=== PATIENT | female | born 1955 | race Caucasian/White ===

== ENCOUNTER 2023-07-31 13:12 | Outpatient (OUT) | payer MEDICARE, SELFPAY ==
--- NOTE | 2023-07-31 13:21 | MM_ITS ---
Patient: CARLOS BENNETT Exam Date: 07/31/2023 : 1955 Gender:F Ordering : Shaikh Andreas Kent . Admission #: [id number] Family : Order #: [id number] CLICK HERE TO VIEW EXAM RADIOLOGY REPORT PROCEDURE: MM TOMOSYNTHESIS SCREENING BI COMPARISON: MG MAMM SCREEN 3D YEE CAD, 06/26/2021. MG MAMM YEE SCRN W CAD DIG, 03/18/2017. MG MAMM YEE SCRN W CAD DIG, 08/22/2014. INDICATIONS: Screening Calculator Name NCI Breast Cancer Risk Assessment Tool 5 Year Breast Cancer Risk 2.80% Lifetime Breast Cancer Risk 10.00% Personal Breast Cancer No Personal Ovarian Cancer No Treatments None Family Cancers Mother with breast cancer at age 50; Father with lung cancer at age 87; Sister with lung cancer at age 72. LOCATION: [facility] BREAST COMPOSITION: Extremely dense, which lowers the sensitivity of mammography. FINDINGS: DIAGNOSTIC CATEGORY 1--NEGATIVE. RIGHT BREAST: No significant suspicious finding. No significant change has occurred. LEFT BREAST: No significant suspicious finding. No significant change has occurred. RECOMMENDATIONS: ROUTINE MAMMOGRAM AND CLINICAL EVALUATION IN 12 MONTHS. PLEASE NOTE: A NORMAL MAMMOGRAM DOES NOT EXCLUDE THE POSSIBILITY OF BREAST CANCER. A CLINICALLY SUSPICIOUS PALPABLE LUMP SHOULD BE BIOPSIED. Dictated by: Max Corley M.D. on 08/04/2023 at 13:20 Approved by: Max Corley M.D. on 08/04/2023 at 13:29
--- NOTE | 2023-07-31 13:21 | XR_ITS ---
[address] [address] Patient Name: CARLOS BENNETT MRN: [id number] date: 1955 Sex: F Assigned Patient Location: [facility] Current Patient Location: [facility] Accession/Order Number: [id number] Exam Date: 07/31/2023 13:40 Report Date: 07/31/2023 14:52 At the request of: SHAIKH TORRES Procedure: XR DEXA axial skeleton EXAMINATION: XR DEXA axial skeleton HISTORY: Osteoporosis Z13.820 COMPARISON: DEXA bone densitometry 04/11/2021 TECHNIQUE: Dual-energy X-ray absorptiometry (DXA) was performed. FINDINGS: SPINE ANALYSIS: Average bone mineral density is 0.884 g/cm2. T-score (standard deviation relative to young adult mean): -2.5 . +18.5% change since prior study. HIP ANALYSIS: Lowest bone mineral density is within the right femoral neck, 0.635 g/cm2. T-score (standard deviation relative to young adult mean): -2.9 . -7.6% change since prior study XR/XR DEXA axial skeleton IMPRESSION: [employer] Classification: Osteoporosis - High Fracture Risk Electronically authenticated by: DIEGO MERCADO Date: 07/31/2023 14:52
[2023-07-31 13:54] LABS: Basophils Absolute Auto 0.1 10^3/uL (0.0-0.1); Eosinophils Absolute Auto 0.4 10^3/uL (0.0-0.7); Eosinophils Percent Auto 3.5 % (0.9-7.0); Hematocrit 43.6 % (36.0-48.0); Immature Granulocytes Abs Auto 0.04 10^3/uL (0.00-0.03); Immature Granulocytes Pct Auto 0.4 % (0.0-0.5); Lymphocytes Absolute Auto 2.5 10^3/uL (1.2-3.8); Lymphocytes Percent Auto 24.6 % (20.5-60.0); Mean Corpuscular HGB Conc 32.1 g/dL (29.9-35.2); Mean Corpuscular Hemoglobin 30.6 pg (26.7-34.0); Mean Corpuscular Volume 95.2 fL (81.0-99.0); Mean Platelet Volume 9.1 fL (9.5-13.5); Neutrophils Absolute Auto 6.1 10^3/uL (1.4-6.5); Neutrophils Percent Auto 60.5 % (43.0-75.0); Platelet Count 300 10^3/uL (150-450); Red Blood Count 4.58 10^6/uL (4.20-5.40); Red Cell Distribution Width 12.9 % (11.0-15.0); White Blood Count 10.1 10^3/uL (4.0-11.0)
[2023-07-31 14:27] LABS: Alanine Aminotransferase 19 U/L (14-59); Albumin Globulin Ratio 1.1; Albumin Level 3.5 g/dL (3.4-5.0); Alkaline Phosphatase 90 U/L (46-116); Anion Gap 9.2; Aspartate Amino Transferase 18 U/L (15-37); BUN Creatinine Ratio 8.3; Bilirubin Total 0.3 mg/dL (0.2-1.0); Calcium 8.6 mg/dL (8.5-10.1); Carbon Dioxide 32.7 mmol/L (21.0-32.0); Chloride 101 mmol/L (98-107); Estimated GFR (African America >60 (>=60); Estimated GFR (Non-African Ame >60 (>=60); Globulin 3.3 g/dL; Glucose 66 mg/dL (74-106); Potassium 3.9 mmol/L (3.5-5.1); Sodium 139 mmol/L (136-145); Total Protein 6.8 g/dL (6.4-8.2)
== END 2023-07-31 13:13 | disposition home or self-care (01) ==
LOC: MAMMO 13:12
PROVIDERS: PCP Internal Medicine; Visit Provider Internal Medicine
DX: Z00.00 Encounter for general adult medical examination without abnormal findings (principal); Z12.31 Encounter for screening mammogram for malignant neoplasm of breast; Z13.820 Encounter for screening for osteoporosis; Z78.0 Asymptomatic menopausal state; Z80.3 Family history of malignant neoplasm of breast; Z80.1 Family history of malignant neoplasm of trachea, bronchus and lung; M81.0 Age-related osteoporosis without current pathological fracture
CPT/HCPCS: 36415; 77063; 77067; 77080; 80053; 85025

== ENCOUNTER 2024-01-05 14:18 | Outpatient (OUT) | payer MEDICARE, SELFPAY ==
--- NOTE | 2024-01-05 14:21 | CT_ITS ---
[address] [address] Patient Name: CARLOS BENNETT MRN: [id number] date: 1955 Sex: F Assigned Patient Location: CT Current Patient Location: CT Accession/Order Number: [id number] Exam Date: 01/05/2024 14:27 Report Date: 01/05/2024 15:37 At the request of: JANETTE CARTY Procedure: CT lung screening low-dose EXAMINATION: CT lung screening low-dose HISTORY: nicotine dependence F17.210, J44.9 COMPARISON: CT LUNG CANCER SCREENING 01/02/2023, 12/23/2021, 12/05/2020 TECHNIQUE: Axial, Coronal, and Sagittal images were created without the administration of IV contrast material. Dose reduction techniques were achieved by using automated exposure control and/or adjustment of mA and/or kV according to patient size and/or use of iterative reconstruction technique. FINDINGS: LUNGS: Stable appearance of a few small, sub-5 mm groundglass/nodular opacities. No new or overtly suspicious nodules. No acute infiltrates. PLEURA: No mass, effusion, or pneumothorax. VASCULATURE: No abnormality. VALE: No mass or pathologic adenopathy. MEDIASTINUM: No mass or pathologic adenopathy. CARDIAC: No enlargement, pericardial thickening, or pericardial effusion. AORTA: No aneurysm or dissection. CHEST WALL: No mass or axillary adenopathy BONES: No bone lesion or fracture. LIMITED ABDOMEN: No suspicious findings. Limited images of the upper abdomen. OTHER: Negative. CT/CT lung screening low-dose IMPRESSION: 1. Lung-RADS 2- Benign Appearance or Behavior. Nodules with a very low likelihood of becoming a clinically active cancer due to size or lack of growth. Follow-up CT Chest in 1 year. Electronically authenticated by: DIEGO MERCADO Date: 01/05/2024 15:37
== END 2024-01-05 14:19 | disposition home or self-care (01) ==
LOC: CT 14:18
PROVIDERS: PCP Internal Medicine; Visit Provider Internal Medicine
DX: F17.219 Nicotine dependence, cigarettes, with unspecified nicotine-induced disorders (principal)
CPT/HCPCS: 71271

== ENCOUNTER 2024-08-04 10:48 | Outpatient (OUT) | payer MEDICARE, SELFPAY ==
--- OUTSIDE RECORDS SUMMARY | 2024-08-04 10:56 | XMS_ITS | CCD ---
Author Organization [facility] Team Providers Care Cardiac Catheterization Technologist Name Role Phone JANETTE ORTEGA Attending DR SULTANA Lipscomb V Consulting SHAIKH Bob Leahy Primary Care Unavailable JANETTE ORTEGA Admitting Unavailable JANETTE ORTEGA Consulting Unavailable Shaikh Kent MD Unavailable Shaikh Kent MD Primary Care Provider SHAIKH KENT Attending Unavailable SHAIKH KENT Attending Unavailable JO SHEPARD Attending JESENIA Saenz Attending Unavailable JO SHEPARD Referring Lulu waldron Medications Current Medications Medication Drug Class(es) Dates Sig (Normalized) Sig (Original) [id number] 200 actuat albuterol 0.09 mg/actuat metered dose inhaler (6 sources) beta2-Adrenergic Agonist take 2 puff(s) by inhalation every four hours for wheezing albuterol HFA 90 mcg/act inhaler Inhale 2 puffs every 4 (four) hours if needed for wheezing Active alendronic acid 70 mg oral tablet (6 sources) Bisphosphonate Start: 04-13-2024 alendronate (Fosamax) 70 MG tablet Indications: Age-related osteoporosis without current pathological fracture (CMS/HCC) Take 1 tablet (70 mg) by mouth every 7 (seven) days 12 tablet 1 04/13/2024 Active atenolol 50 mg oral tablet (8 sources) beta-Adrenergic Kenzie Start: 12-25-2023 End: 07-07-2024 take 1 tablet by mouth once daily atenolol (Tenormin) 50 MG tablet Indications: Primary hypertension (CMS/HCC) Take 1 tablet (50 mg) by mouth Daily 90 tablet 1 07/07/2024 Active atorvastatin 40 mg oral tablet (6 sources) HMG-CoA Reductase Inhibitor take 1 tablet by mouth in the morning atorvastatin (Lipitor) 40 MG tablet Take 1 tablet by mouth in the morning. Active calcium carbonate 1250 mg / cholecalciferol 125 unt oral tablet (6 sources) Vitamin D Start: 11-03-2023 take 1 tablet by mouth twice daily Oyster Shell Calcium + D3 500-10 MG-MCG tablet Indications: Age-related osteoporosis without current pathological fracture (CMS/HCC) Take 1 tablet by mouth twice daily 180 tablet 11/03/2023 Active fluocinonide 0.5 mg/ml topical cream (8 sources) Corticosteroid Start: 07-14-2023 End: 07-07-2024 fluocinonide (Lidex) 0.05 % cream Indications: Rash Apply 1 application topically in the morning and 1 application before bedtime. 15 g 3 07/07/2024 Active 60 actuat fluticasone propionate 0.5 mg/actuat / salmeterol 0.05 mg/actuat dry powder inhaler (6 sources) Corticosteroid, beta2-Adrenergic Agonist Start: 08-12-2023 take 1 puff(s) by inhalation in the morning Fluticasone-Salme terol 500-50 MCG/ACT aerosol powder Inhale 1 puff in the morning and 1 puff before bedtime. 08/12/2023 Active ipratropium bromide 0.2 mg/ml inhalation solution (6 sources) Anticholinergic ipratropium (Atrovent) 0.02 % nebulizer solution Take 3 mL by nebulization every 6 (six) hours Active Completed/Discontinued Medications Medication Drug Class(es) Dates Sig (Normalized) Sig (Original) 120 actuat albuterol 0.1 mg/actuat / ipratropium bromide 0.02 mg/actuat inhalation spray (3 sources) Anticholinergic, beta2-Adrenergic Agonist End: 07-07-2024 ipratropium-albute rol (Combivent Respimat) 20-100 MCG/ACT inhaler Inhale 1 puff in the morning and 1 puff at noon and 1 puff in the evening and 1 puff before bedtime. 07/07/2024 Discontinued (Therapy completed) clobetasol propionate 0.5 mg/ml topical solution (3 sources) Corticosteroid Start: 05-12-2024 End: 07-07-2024 clobetasol (Temovate) 0.05 % external solution Indications: Atopic dermatitis of scalp APPLY SOLUTION TOPICALLY TO AFFECTED AREA TWICE DAILY FOR 14 DAYS 50 mL 05/12/2024 07/07/2024 Discontinued (Therapy completed) nicotine 4 mg oral lozenge (6 sources) Cholinergic Nicotinic Agonist Start: 10-07-2023 End: 07-07-2024 nicotine (Nicotine Step 1) 21 MG/24HR patch Indications: Tobacco dependency Place 1 patch over 24 hours on the skin 1 (one) time each day at the same time 30 patch 10/07/2023 07/07/2024 Discontinued (Therapy completed) Start: 10-07-2023 End: 07-07-2024 nicotine polacrilex (Commit) 4 MG lozenge Indications: Tobacco dependency Dissolve 1 lozenge (4 mg) in the mouth every 2 (two) hours if needed for smoking cessation 30 lozenge 1 10/07/2023 07/07/2024 Discontinued (Therapy completed) Problems Active Problems Problem Classification Problem Date Documented Da te Episodic/Chronic Allergic reactions (6 sources) Atopic dermatitis of scalp; Translations: [Atopic dermatitis, unspecified] Onset: 10-07-2023 10-07-2023 Chronic Chronic obstructive pulmonary disease and bronchiectasis (6 sources) Pulmonary emphysema; Translations: [Other emphysema] Onset: 10-07-2023 10-07-2023 Chronic Disorders of lipid metabolism (8 sources) Hyperlipidemia; Translations: [Other hyperlipidemia] Onset: 10-07-2023 10-07-2023 Chronic Essential hypertension (8 sources) Essential hypertension; Translations: [Essential (primary) hypertension] Onset: 10-07-2023 10-07-2023 Chronic Osteoporosis (6 sources) Senile osteoporosis; Translations: [Age-related osteoporosis without current pathological fracture] Onset: 10-07-2023 10-07-2023 Chronic Other hereditary and degenerative nervous system conditions (2 sources) Essential tremor; Translations: [Essential tremor] 07-21-2024 Chronic Other nervous system disorders (9 sources) Involuntary movement; Translations: [Unspecified abnormal involuntary movements] Onset: 07-07-2024 07-07-2024 Episodic Other screening for suspected conditions (not mental disorders or infectious disease) (2 sources) Patient encounter status; Translations: [Encounter for screening mammogram for malignant neoplasm of breast] 07-07-2024 Episodic Other skin disorders (7 sources) Eruption; Translations: [Rash and other nonspecific skin eruption] 07-07-2024 Episodic Substance-related disorders (10 sources) Nicotine dependence, cigarettes, with unspecified nicotine-induced disorders; Translations: [Tobacco dependence syndrome] Onset: 01-02-2023 Chronic Past or Other Problems Problem Classification Problem Date Documented Da te Episodic/Chronic Mood disorders (6 sources) Mood disorders Onset: 01-06-2024 01-06-2024 Results Test Name Value Interpretation Reference Range Facil ity CT LUNG CANCER SCREENINGon 0 01-02-2023 CT LUNG CANCER SCREENING EXAMINATION: CT LUNG CANCER SCREENING HISTORY: Nicotine dependence COMPARISON: 12/31/2021 TECHNIQUE: Axial, Coronal, and Sagittal images were created without the administration of IV contrast material. Dose reduction techniques were achieved by using automated exposure control and/or adjustment of mA and/or kV according to patient size and/or use of iterative reconstruction technique. FINDINGS: LUNGS: Stable scattered solid and groundglass pulmonary nodules unchanged both in size and number from the prior exam. The largest solid nodule is identified in the left upper lobe, axial image #32 measuring 5.5 x 4 mm. PLEURA: No mass, effusion, or pneumothorax. VASCULATURE: No abnormality. VALE: No mass or pathologic adenopathy. MEDIASTINUM: No mass or pathologic adenopathy. CARDIAC: No enlargement or pericardial effusion. Moderate coronary atherosclerosis AORTA: No aneurysm or dissection. CHEST WALL: No mass or axillary adenopathy BONES: No bone lesion or fracture. LIMITED ABDOMEN: No suspicious findings. Limited images of the upper abdomen. OTHER: Negative. IMPRESSION: LUNG SCREENING: Lung-RADS Category 2- Benign Appearance or Behavior. Nodules with a very low likelihood of becoming a clinically active cancer due to size or lack of growth. 2. Continue annual screening with LDCT in 12 months. Electronically authenticated by: SULTANA TORRES Date: 2023-01-02 09:31 Normal [facility] Vital Signs Date Time Vital Sign Value Performing Clinician Artie holliday 07-21-2024 12:19-0400 Body height 162.6 cm Jesenia Cardona [employer] Work Phone: [facility] 07-21-2024 12:19-0400 Body mass index (BMI) [Ratio] 19.02 kg/m2 Christopher Brendan DO Work Phone: [facility] 07-21-2024 12:19-0400 Body weight 50.26 kg Christmaryer Brendan DO Work Phone: [facility] 07-21-2024 12:19-0400 Diastolic blood pressure 78 mm[Hg] Christopher Brendan DO Work Phone: [facility] 07-21-2024 12:19-0400 Heart rate 74 /min Christopher Brendan DO Work Phone: [facility] 07-21-2024 12:19-0400 SaO2% (BldA) [Mass fraction] 95 % Christopher Brendan DO Work Phone: [facility] 07-21-2024 12:19-0400 Systolic blood pressure 121 mm[Hg] Christopher Brendan DO Work Phone: [facility] 07-07-2024 14:16-0400 Body mass index (BMI) [Ratio] 18.3 kg/m2 Jo Shepard FURNACE [employer]TER Work Phone: [facility] 07-07-2024 14:16-0400 Body temperature 98.2 [degF] Jo Shepard FURNACE [employer]TER Work Phone: [facility] 07-07-2024 14:16-0400 Body weight 49.9 kg Jo Shepard F[employer]NACE [employer]TER Work Phone: [facility] 07-07-2024 14:16-0400 Diastolic blood pressure 60 mm[Hg] Jo Shepard FURNACE SETTER Work Phone: [facility] 07-07-2024 14:16-0400 Heart rate 75 /min Jo Shepard F[employer]NACE [employer]TER Work Phone: [facility] 07-07-2024 14:16-0400 SaO2% (BldA) [Mass fraction] 96 % Jo Shepard FURNACE SETTER Work Phone: [facility] 07-07-2024 14:16-0400 Systolic blood pressure 100 mm[Hg] Jo Shepard FURNACE SETTER Work Phone: [facility] Encounters Encounter Date Encounter Type Care Provider Facility Start: 07-21-2024 End: 07-21-2024 Bamboo flowsheet Jesenia Cardona DO Work Phone: [facility] Start: 07-21-2024 End: 07-21-2024 Bamboo flowsheet Jesenia Cardona DO Work Phone: [facility] [address] Start: 07-21-2024 End: 07-21-2024 Office outpatient new 30 minutes Jesenia Cardona DO Work Phone: [facility] Comment on above: Essential tremor (Pr imary Dx); Unspecified abnormal involuntary movements Start: 07-21-2024 End: 07-21-2024 ambulatory SIMISERGE CARDONA Not Available Start: 07-07-2024 End: 07-07-2024 Office outpatient visit 15 minutes Jo Segurak FURNACE SETTER Work Phone: [facility] Comment on above: Primary hypertension (CMS/HCC) (Primary Dx); Unspecified abnormal involuntary movements; Other hyperlipidemia (CMS/HCC); Rash; Encounter for screening mammogram for malignant neoplasm of breast Start: 07-07-2024 End: 07-07-2024 ambulatory JO ESTESTRICK Not Available Start: 07-07-2024 End: 07-07-2024 Bamboo flowsheet Jo Estestrick FURNACE SETTER Work Phone: [facility] Start: 07-07-2024 End: 07-07-2024 Bamboo flowsheet Jo Burnettpatrick FURNACE SETTER Work Phone: [facility] Start: 01-06-2024 End: 01-06-2024 ambulatory CLAUDIO FAWWAD Not Available Start: 10-07-2023 End: 10-07-2023 ambulatory CLAUDIO FAWWAD Not Available Start: 01-02-2023 End: 01-03-2023 ambulatory JANETTE SAMSA . Facility: Procedures Date Procedure Procedure Detail Performing Clinician Start: 07-06-2023 Mammography Jo boston NP Work Phone: Plan of Treatment Date Care Activity Detail Author Start: 12-19-2025 Screening for malign ant neoplasm of colon [facility] Start: 01-05-2025 End: 01-05-2025 Patient encounter procedure 01/05/2025 2:00 PM EDT Office Visit [facility] [address] [place] [phone] Jo Shepard NP [address] [place] [address] [facility] Start: 07-21-2024 End: 07-21-2024 Patient encounter procedure 07/21/2024 12:30 PM EDT [facility] [address] [place] [phone] Jesenia Cardona DO [address] [place] [address] Unspecified abnormal involuntary movements [facility] Comment on above: Unspecified abnormal involuntary movements Start: 07-07-2024 End: 07-07-2024 Patient encounter procedure 07/07/2024 2:30 PM EDT Office [facility] [address] [place] [phone] Jo Shepard NP [address] [place] [phone] Arrived [facility] Comment on above: Arrived Start: 07-07-2024 End: 07-07-2025 CBC W Auto Differential panel - Blood CBC and differential Lab Routine Primary hypertension (CMS/HCC) Expected: 07/07/2024 (Approximate), Expires: 07/07/2025 [facility] Comment on above: Expected: 07/07/2024 (Approximate), Expires: 07/07/2025 Start: 07-07-2024 End: 07-07-2025 Comprehensive metabolic 2000 panel - Serum or Plasma Comprehensive metabolic panel Lab Routine Primary hypertension (CMS/HCC) Expected: 07/07/2024 (Approximate), Expires: 07/07/2025 [facility] Comment on above: Expected: 07/07/2024 (Approximate), Expires: 07/07/2025 Start: 07-07-2024 End: 07-07-2025 Lipid 1996 panel - Serum or Plasma Lipid panel Lab Routine Other hyperlipidemia (CMS/HCC) Expected: 07/07/2024 (Approximate), Expires: 07/07/2025 [facility] Comment on above: Expected: 07/07/2024 (Approximate), Expires: 07/07/2025 Start: 07-07-2024 End: 09-06-2025 MG Breast - bilateral Screening Bilateral screening mammogram Imaging Routine Encounter for screening mammogram for malignant neoplasm of breast Expected: 07/07/2024, Expires: 09/06/2025 [facility] Comment on above: Expected: 07/07/2024 , Expires: 09/06/2025 Start: 07-07-2024 End: 07-07-2025 Microalbumin/Creatinine panel in random Urine Microalbumin / creatinine urine ratio Lab Routine Primary hypertension (CMS/HCC) Expected: 07/07/2024 (Approximate), Expires: 07/07/2025 [facility] Work Phone: Comment on above: Expected: 07/07/2024 (Approximate), Expires: 07/07/2025 Start: 07-06-2024 Screening for malign ant neoplasm of breast Mammogram [facility] Start: 07-02-2024 Medicare Annual Wellness (AWV) Medicare Annual Wellness (AWV) [facility] Start: 06-06-2024 Influenza vaccination Influenza Vacc ine (#1) [facility] Start: 09-23-2021 Pneumococcal Vaccine : 65+ Years (2 of 2 - PCV) Pneumococcal Vaccine: 65+ Years (2 of 2 - PCV) [facility] Start: 1955 Screening for malign ant neoplasm of colon [facility] Immunizations Immunization Date Immunization Notes Care Provider Fa cility 11-02-2022 Influenza, High-dose Seasonal, Quadrivalent, Preservative Free Jo Shepard F[employer]NACE [employer]TER Work Phone: [facility] 11-02-2022 influenza virus vacc ine, unspecified formulation Jo Shepard FURNACE SETTER Work Phone: [facility] 09-23-2020 pneumococcal polysaccharide vaccine, 23 valent Jo Shepard FURNACE SETTER Work Phone: [facility] 09-02-2020 Seasonal, quadrivale nt, recombinant, injectable influenza vaccine, preservative free Jo Shepard FURNACE SETTER Work Phone: [facility] 10-10-2019 influenza, injectabl e, quadrivalent, preservative free Jo Shepard FURNACE SETTER Work Phone: [facility] 08-14-2018 influenza, injectabl e, quadrivalent, preservative free Jo Shepard FURNACE SETTER Work Phone: [facility] 08-04-2017 influenza, injectabl e, quadrivalent, preservative free Jo Shepard FURNACE SETTER Work Phone: [facility] Payers Date Payer Category Payer Medicare [employer] MEDICARE ADVANTAGE [facility] MEDICARE ADVANTAGE [id number] 2023-Present [address] [place] [address] [id number] 2023 Medicare (Managed Care) [facility] Member Subscriber Plan / Payer (Effective 2023-Present) Name: Andrade Carlos Relation to Subscriber: Self Name: Andrade Carlos Payer ID: Not on file Group ID: [id number] Type: Not on file Address: [address] [place] [id number] 2023 Medicare [id number] 2022 Private Health Insurance [employer] [id number] 2022 Unknown [employer] [id number] 2022-Present [phone] [address] [place] [id number] 1959 Unknown [id number] 1955 Unknown [id number] 1957 Unknown [id number] 1957 Unknown [id number] 1957 Unknown [id number] 1957 Unknown [id number] Social History Date Type Detail Facility Start: [facility]06[facility]24 [facility] History of tobacco use Cigarette Smoker [facility] Start: 01-06-2024 Cigarettes smoked cu rrent (pack per day) - Reported 0.5 [facility] History of tobacco use Passive smoker [facility] Start: 01-06-2024 Tobacco use and exposure Smoke less tobacco non-user [facility] Start: 01-06-2024 Alcoholic beverage intake Life time non-drinker (finding) [facility] Start: 01-06-2024 Tobacco use panel [facility] Start: 09-08-2023 Tobacco Comment *current smoke r, frequency unknown [facility] Start: 1955 Sex assigned at Not on file [facility] History of Present illness Narrative 07-21-2024 Jesenia Cardona, DO - 07/21/2024 12:30 PM EDT Note Date & Type Note Facility 07-21-2024 History of Presen t illness Narrative Images from the original note were not included. Chief Complaint: involuntary movements Subjective Carlos Bennett, 69 y.o., female Carlos is here for a neurologic consult at the request of Jo Shepard FURNACE SETTER for abnormal involuntary movements. Patient states she is here for a head tremor. She states this started when she was 18. This only happened when she was nervous. Currently this is happening every day. This comes and goes throughout the day. She did not notice if it is worse with activity or rest. She does not notice any triggers at this point. She states if she presses her head back against a chair this can stop it. She has not tried any medications for this but is wondering if there is a pill to take to stop it. She admits to an occasional headache. She denies any blurred vision. Denies any balance issues. She reports sleeping well about 6-8 hours a night. She does take tylenol PM every night to sleep. Review of Systems Constitutional: Negative for appetite change, fatigue and fever. Respiratory: Negative for cough, shortness of breath and wheezing. Cardiovascular: Negative for chest pain, palpitations and leg swelling. Gastrointestinal: Negative for abdominal pain, constipation, diarrhea and nausea. Musculoskeletal: Negative for arthralgias, gait problem and myalgias. Neurological: Positive for tremors. Negative for dizziness, numbness and headaches. Past Medical History: Diagnosis Date At low risk for fall Chronic obstructive pulmonary disease (CMS/HCC) Severe obstructive disease on spirometry Reports exertional shortness of breath No recent exacerbations Cigarette nicotine dependence with nicotine-induced disorder Prior treatment: Patches, Chantix, wellbutrin Ear itch External ear canal; dry with excoriations. Essential hypertension (CMS/HCC) Family history of lung cancer sister,father HLD (hyperlipidemia) (CMS/HCC) HLD (hyperlipidemia) (CMS/HCC) Multiple pulmonary nodules LDCT 12/31/2020: Unchanged nodules LDCT 12/05/2020: Multiple bilateral pulmonary nodules, largest is on right @ 4.5cm Oral nafisa Overflow incontinence Rash Tobacco user Uses 10 cigarettes daily now Past Surgical History: Procedure Laterality Date KNEE SURGERY Right Right Knee Arthroscopy TONSILLECTOMY and Adenoidectomy TUBAL LIGATION Family History Problem Relation Name Age of Onset Cancer Mother Breast cancer Other (Other) Mother Blood clots Cancer Father Lung cancer COPD Sister Stroke Sister Cancer Sister Lung Cancer Social History Tobacco Use Smoking status: Every Day Current packs/day: 0.50 Average packs/day: 0.5 packs/day for 45.0 years (22.5 ttl pk-yrs) Types: Cigarettes Passive exposure: Current Smokeless tobacco: Never Tobacco comments: *current smoker, frequency unknown Substance Use Topics Alcohol use: Never Allergies: Patient has no known allergies. Vitals: 07/21/24 1219 BP: 121/78 Pulse: 74 SpO2: 95% Body mass index is 19.02 kg/m . weight: 110 lb 12.8 oz Neurologic exam: Mental status: Awake, alert to person, place and time. Recent and remote memory are intact. Language is fluent without aphasia. Attention and concentration are normal. Fund of knowledge is appropriate for level of education. Cranial nerves: CN II: Visual acuity is normal. Visual hardwick full to confrontation. CN III, IV, : pupils equal round and reactive to light. Extraocular movements intact. No ptosis present. CN V: Facial sensation is normal. CN VII: Full and symmetric facial movement. CN VIII: Hearing is normal to finger rub bilaterally: CN IX and X: Palate elevates symmetrically. CN XI: Shoulder shrug is normal bilaterally. CN XII: Tongue is midline without atrophy or fasciculation. Motor: RUE Strength deltoid, , biceps , triceps , wrist extensors , wrist flexor , computer systems designer strength 5/5. LUE Strength deltoid , biceps , triceps , wrist extensors , wrist flexor , computer systems designer strength 5/5. RLE Strength illopsoas, quadriceps, tibialis anterior, and gastrocnemius strength 5/5. LLE Strength illopsoas, quadriceps, tibialis anterior, and gastrocnemius strength 5/5. Normal tone x4 extremities. Tremor noted in the head no-no tremor Bulk is normal. Sensory: Sensation is intact to light touch throughout Four extremities. Reflexes: RUE biceps reflex 2+ brachioradialis reflex 2+ . LUE biceps reflex 2+ brachioradialis reflex 2+ . RLE knee reflex 2+ . LLE knee reflex 2+ . Lo's sign negative. Coordination: [id number] testing and rapid alternating movements are normal Gait: Normal Review and summary of old records: Assessment/Plan Diagnoses and all orders for this visit: Essential tremor Unspecified abnormal involuntary movements It is my impression that the patient has tremor of the head and occasionally of the upper extremities. Anxiety seems to make it worse. This is been ongoing since the age of 18 and does not necessarily seem to be worsening substantially over that time. A glass of alcohol does seem to make it better. No family history. No parkinsonian signs on examination. Overall I feel this is consistent with diagnosis of essential tremor. Plan: Patient is already on atenolol and I wonder if a transition of this medication to propranolol may help more well-controlled symptoms. The symptoms are not overly bothersome, as such, I do not recommend we be overly aggressive with treatment as the side effects of the medications to treat tremor, such as fatigue from primidone, maybe more troublesome than the tremor itself for the patient We will see the patient back in a few months to assess the success of switching atenolol to propranolol, if okay with primary care, and continue to evaluate for any transformation of the tremor. Pt has been fully educated on their diagnosis, treatment options, follow up plan, and return instructions documented in this encounter [facility] History of Present illness Narrative 07-07-2024 Jo Shepard, JOSHUA - 07/07/2024 2:53 PM Meryl Shepard, JOSHUA - 07/07/2024 2:53 PM Meryl Shepard, JOSHUA - 07/07/2024 2:48 PM Meryl Shepard, JOSHUA - 07/07/2024 2:30 PM EDT Note Date & Type Note Facility 07-07-2024 History of Presen t illness Narrative Associated Problem(s): Unspecified abnormal involuntary movements Has involuntary shaking/movements of head. Ongoing since 18 years of age. States initially episodes only occurred with anxiety but with age has progressed to frequent occurrences. Referral sent to Neurology. Associated Problem(s): Other hyperlipidemia (CMS/HCC) Currently not taking any medications. Stopped Atorvastatin 1 year ago. Will check labs today. Associated Problem(s): Primary hypertension (CMS/HCC) Currently taking atenolol 50mg Does not check BP at home; Denies orthostatic changes, dizziness, cough, shortness of breath, swelling in extremities. Continue current regimen. Given BP log, advised pt to record BP and bring log back with them to next visit. Images from the original note were not included. Subjective Patient ID: Carlos Bennett is a 69 y.o. female who presents for No chief complaint on file.. HPI HTN: Currently taking atenolol 50mg Does not check BP at home; Denies orthostatic changes, dizziness, cough, shortness of breath, swelling in extremities. Continue current regimen. Given BP log, advised pt to record BP and bring log back with them to next visit. HLD: Currently not taking any medications. Stopped Atorvastatin 1 year ago. Will check labs today. Has involuntary shaking/movements of head. Ongoing since 18 years of age. States initially episodes only occurred with anxiety but with age has progressed to frequent occurrences. Review of Systems Constitutional: Negative for activity change, appetite change, chills, diaphoresis, fatigue, fever and unexpected weight change. HENT: Negative for congestion, ear pain, rhinorrhea, sinus pressure, sinus pain, sneezing, sore throat, trouble swallowing and voice change. Eyes: Negative for visual disturbance. Respiratory: Negative for cough, chest tightness, shortness of breath and wheezing. Cardiovascular: Negative for chest pain, palpitations and leg swelling. Gastrointestinal: Negative for abdominal distention, abdominal pain, blood in stool, constipation, diarrhea and vomiting. Genitourinary: Negative for decreased urine volume, dysuria, flank pain, frequency, hematuria and urgency. Musculoskeletal: Negative for arthralgias, gait problem, joint swelling and myalgias. Skin: Negative for rash. Neurological: Negative for dizziness, tremors, syncope, weakness, light-headedness and headaches. Psychiatric/Behavioral: Negative for decreased concentration and suicidal ideas. The patient is not nervous/anxious. Hematological: Does not bruise/bleed easily. Endocrine: Negative for cold intolerance, heat intolerance, polydipsia, polyphagia and polyuria. Objective Physical Exam Vitals reviewed. Constitutional: Appearance: Normal appearance. HENT: Head: Normocephalic and atraumatic. Right Ear: Tympanic membrane normal. Left Ear: Tympanic membrane normal. Nose: Nose normal. Mouth/Throat: Mouth: Mucous membranes are moist. Pharynx: Oropharynx is clear. Eyes: Pupils: Pupils are equal, round, and reactive to light. Cardiovascular: Rate and Rhythm: Normal rate and regular rhythm. Pulses: Normal pulses. Heart sounds: Normal heart sounds. Pulmonary: Effort: Pulmonary effort is normal. Breath sounds: Normal breath sounds. Abdominal: General: Abdomen is flat. Bowel sounds are normal. Palpations: Abdomen is soft. Musculoskeletal: General: Normal range of motion. Cervical back: Normal range of motion. Skin: General: Skin is warm and dry. Capillary Refill: Capillary refill takes less than 2 seconds. Neurological: General: No focal deficit present. Mental Status: She is alert and oriented to person, place, and time. Psychiatric: Mood and Affect: Mood normal. Behavior: Behavior normal. Assessment/Plan Problem List Items Addressed This Visit Primary hypertension (CMS/HCC) - Primary Currently taking atenolol 50mg Does not check BP at home; Denies orthostatic changes, dizziness, cough, shortness of breath, swelling in extremities. Continue current regimen. Given BP log, advised pt to record BP and bring log back with them to next visit. Relevant Orders Microalbumin / creatinine urine ratio Comprehensive metabolic panel CBC and differential Other hyperlipidemia (CMS/HCC) Currently not taking any medications. Stopped Atorvastatin 1 year ago. Will check labs today. Relevant Orders Lipid panel Unspecified abnormal involuntary movements Has involuntary shaking/movements of head. Ongoing since 18 years of age. States initially episodes only occurred with anxiety but with age has progressed to frequent occurrences. Referral sent to Neurology. Relevant Orders Ambulatory referral to Neurology documented in this encounter [facility] Healthcare Instructions 07-07-2024 Patient Instructions Note Date & Type Note Facility 07-07-2024 Instructions Jo Shepard NP - 07/07/2024 2:30 PM EDT Referral sent to Neurology- Dr. Encinas; They will call you. If you don't hear from them in 2 weeks, call my office! FASTING labs ordered. Nothing to eat or drink for 12 hours prior to blood draw. Water and black coffee ok. Your blood pressure is GOOD in the office today. Check your blood pressure at home 3 times per week, preferably in the afternoon. Goal <130/90. Record results in blood pressure log. Bring back with you to your next visit. Diet: Eat three meals per day. Breakfast, lunch, and dinner. Avoid snacking. Avoid eating after 5/6 pm. Daily protein GOAL 35% of your intake; 30g per meal. Daily calorie GOAL 1,800-2,000 per day. Consider tracking your food intake on My[employer]inessPal or L[employer]It Water: Increase water intake; GOAL 64-80oz of water per day. Exercise: Increase activity. GOAL 30 minutes, 5 days per week. START SLOW. Start with 5 minutes, 5 days per week. Then increase to 10 days, 5 days per week. Continue to increase until you reach the goal. Increase steps; GOAL 10,000 steps per day. Be sure to get adequate sleep; GOAL 6-8 hours of sleep per night. documented in this encounter [facility] Evaluation note Note Date & Type Note Facility Evaluation note Diagnosis Primary hypertension (CMS/HCC)- Primary Unspecified essential hypertension Unspecified abnormal involuntary movements Other hyperlipidemia (CMS/HCC) Rash Rash and other nonspecific skin eruption Encounter for screening mammogram for malignant neoplasm of breast documented in this encounter [facility] Evaluation note Note Date & Type Note Facility Evaluation note Diagnosis Tobacco dependency- Primary Tobacco use disorder Primary hypertension (CMS/HCC) Unspecified essential hypertension Age-related osteoporosis without current pathological fracture (CMS/HCC) Other hyperlipidemia (CMS/HCC) Other emphysema (CMS/HCC) Other emphysema Atopic dermatitis of scalp Primary hypertension (CMS/HCC)- Primary Unspecified essential hypertension Other hyperlipidemia (CMS/HCC) Age-related osteoporosis without current pathological fracture (CMS/HCC) Primary hypertension (CMS/HCC)- Primary Unspecified essential hypertension Unspecified abnormal involuntary movements Other hyperlipidemia (CMS/HCC) Rash Rash and other nonspecific skin eruption Encounter for screening mammogram for malignant neoplasm of breast Essential tremor- Primary Unspecified abnormal involuntary movements documented in this encounter [facility] Reason for referral (narrative) Consultation (Routine) - Authorized Note Date & Type Note Facility Reason for referral (narrati ve) Specialty Diagnoses / Procedures Referred By Danielito jesus Referred To Contact Neurology Diagnoses Unspecified abnormal involuntary movements Procedures CO OFFICE/OUTPATIENT NEW HIGH MDM 60 MINUTES Jo Shepard NP [address] [place] [address] Max Encinas MD [address] [place] [address] Referral ID Status Reason Start Date Expiration Date Visits Requested Visits Authorized [id number] Authorized Specialty Services Required 07/07/2024 01/03/2025 1 1 [facility] Healthcare Reason for visit Narrative Consultation (Routine) - Closed Note Date & Type Note Facility Reason for visit Narrative Specialty Diagnoses / Procedures Referred By Danielito jesus Referred To Contact Neurology Diagnoses Unspecified abnormal involuntary movements Procedures CO OFFICE/OUTPATIENT NEW HIGH MDM 60 MINUTES Jo Shepard NP [address] [place] [address] Phone: tel: fax: Max Encinas MD [address] [place] [address] Phone: tel: fax: Referral ID Status Reason Start Date Expiration Date V isits Requested Visits Authorized [id number] Closed Specialty Services Required 07/07/2024 01/03/2025 1 1 [facility] Summary Purpose Family History No Family History Records FoundNo Family History Records Found Advance Directives No Advanced Directives Records FoundNo Advanced Directives Records Found Additional Source Comments INFORMATION SOURCE (unrecogn ized section and content) DATE CREATED AUTHOR 01/10/2023 [facility] DATE CREATED AUTHOR AUTHOR'S ORGANIZ ATION 07/23/2024 [facility] EPIC Care Teams (unrecognized sec tion and content) Cardiac Catheterization Technologist Relationship Specialty Start Date End Date Shaikh Kent MD [address] [place] [id number] PCP - Alvaro HERNANDEZ 10/06/23 Shaikh Kent MD [address] [place] [place] [address] PCP - General Internal Medicine 01/06/24 Cardiac Catheterization Technologist Relationship Specialty Start Date End Date Shaikh Kent MD [address] [place] [phone] PCP Parul John MA 10/06/23 Shaikh Kent MD [address] [place] [address] PCP - General Internal Medicine 01/06/24 Cardiac Catheterization Technologist Relationship Specialty Start Date End Date Shaikh Kent MD [address] [place] [phone] PCP Parul John MA 10/06/23 Shaikh Kent MD [address] [place] [phone] PCP - General Internal Medicine 01/06/24 Cardiac Catheterization Technologist Relationship Specialty Start Date End Date Shaikh Kent MD [address] [place] [phone] PCP - Alvaro HERNANDEZ 10/06/23 Shaikh Kent MD [address] [place] [address] PCP - General Internal Medicine 01/06/24 FOR RECORDS PERTAINING TO PATIENTS WHO ARE OR HAVE BEEN ENROLLED IN A CHEMICAL DEPENDENCY/SUBSTANCEABUSE PROGRAM, SOME INFORMATION MAY BE OMITTED. This clinical summary was aggregated from multiple sources. Caution should be exercised in using it in the provision of clinical care. This summary normalizes information from multiple sources, and as a consequence, information in this document may materially change the coding, format and clinical context of patient data. In addition, data may be omitted in some cases. CLINICAL DECISIONS SHOULD BE BASED ON THE PRIMARY CLINICAL RECORDS. [employer] [facility]. provides no warranty or guarantee of the accuracy or completeness of information in this document.
[2024-08-04 11:04] LABS: Basophils Absolute Auto 0.2 10^3/uL (0.0-0.1); Basophils Percent Auto 1.3 % (0.2-2.0); Eosinophils Absolute Auto 0.3 10^3/uL (0.0-0.7); Eosinophils Percent Auto 2.5 % (0.9-7.0); Hemoglobin 14.3 g/dL (12.0-16.0); Immature Granulocytes Abs Auto 0.06 10^3/uL (0.00-0.03); Immature Granulocytes Pct Auto 0.5 % (0.0-0.5); Lymphocytes Absolute Auto 3.4 10^3/uL (1.2-3.8); Lymphocytes Percent Auto 28.1 % (20.5-60.0); Mean Corpuscular HGB Conc 32.5 g/dL (29.9-35.2); Mean Corpuscular Hemoglobin 30.8 pg (26.7-34.0); Mean Corpuscular Volume 94.8 fL (81.0-99.0); Mean Platelet Volume 9.2 fL (9.5-13.5); Monocytes Absolute Auto 1.4 10^3/uL (0.3-0.8); Monocytes Percent Auto 11.5 % (1.7-12.0); Neutrophils Absolute Auto 6.7 10^3/uL (1.4-6.5); Neutrophils Percent Auto 56.1 % (43.0-75.0); Platelet Count 330 10^3/uL (150-450); Red Blood Count 4.64 10^6/uL (4.20-5.40); Red Cell Distribution Width 12.8 % (11.0-15.0); White Blood Count 11.9 10^3/uL (4.0-11.0)
[2024-08-04 12:06] LABS: Alanine Aminotransferase 15 U/L (14-59); Albumin Level 3.6 g/dL (3.4-5.0); Alkaline Phosphatase 78 U/L (46-116); Anion Gap 13.6; Aspartate Amino Transferase 19 U/L (15-37); BUN Creatinine Ratio 7.9; Bilirubin Total 0.5 mg/dL (0.2-1.0); Calcium 8.7 mg/dL (8.5-10.1); Carbon Dioxide 29.4 mmol/L (21.0-32.0); Chloride 101 mmol/L (98-107); Chol HDL Ratio 3.5; Cholesterol 194 mg/dL (<=200); Estimated GFR (African America >60 (>=60 mL/min/1.73m^2); Estimated GFR (Non-African Ame >60 (>=60 mL/min/1.73m^2); Globulin 3.5 g/dL; Glucose 94 mg/dL (74-106); HDL Cholesterol 55 mg/dL (40-60); LDL Cholesterol Calculated 116.8 mg/dL; Sodium 140 mmol/L (136-145); Total Protein 7.1 g/dL (6.4-8.2); Triglycerides 111 mg/dL (<=150); VLDL CHOLESTEROL 22.2 mg/dL
[2024-08-04 12:39] LABS: Creatinine Urine Random 34.27 mg/dL (20.00-300.00); Microalbumin Urine Random <1.3 mg/dL (<=30.0)
== END 2024-08-04 10:49 | disposition home or self-care (01) ==
LOC: LAB 10:50
DX: E78.49 Other hyperlipidemia (principal); I10 Essential (primary) hypertension
CPT/HCPCS: 36415; 80053; 80061; 82043; 82570; 85025

== ENCOUNTER 2025-01-14 12:33 | Outpatient (OUT) | payer MEDICARE, SELFPAY ==
--- NOTE | 2025-01-14 | CT_ITS ---
The [address] [address] Patient Name: CARLOS BENNETT MRN: [id number] date: 1955 Sex: F Assigned Patient Location: CT Current Patient Location: CT Accession/Order Number: [id number] Exam Date: 01/14/2025 12:59 Report Date: 01/14/2025 13:06 At the request of: JANETTE CARTY DO Procedure: CT lung screening low-dose CT Chest lung screening without contrast TECHNIQUE: Axial imaging with 2-D reconstruction. The CT exam was performed using one or more the following dose reduction techniques: Automated exposure control, adjustment of the MA and/or Kv according to patient size, or use of the iterative reconstruction technique. History: current smoker. Yearly checkup. COMPARISON: 01/05/2024 THYROID: Unremarkable TRACHEA AND BRONCHI: Patent ESOPHAGUS: Unremarkable. HEART: Within normal limits PERICARDIAL EFFUSION: None CORONARY ARTERY CALCIFICATION: None MEDIASTINUM: No adenopathy. No pneumoperitoneum. No mediastinal hematoma. PULMONARY VALE: No hilar mass or adenopathy is seen. THORACIC AORTA Unremarkable LUNG NODULE a few stable less than 5 mm groundglass nodular opacities. No new or enlarging nodules. LUNGS: Lungs are clear PLEURAL EFFUSION: None PNEUMOTHORAX: No pneumothorax seen. CHEST WALL: No abnormality AXILLA:Unremarkable BONY STRUCTURES Intact UPPER ABDOMEN: Images of the upper abdomen are noncontributory. CT/CT lung screening low-dose IMPRESSION: Stable sub-5 mm groundglass nodular opacities. No new or enlarging nodules. FINAL ASSESSMENT: Benign behavior/findings Lung-RADS Version 1.0 Assessment Category: 2 REMARKS: Continued annual screening with LDCT in 12 months is recommended. Impression dictated by: Joseph Grier M.D.01/14/2025 1:06 PM Dictation Location: [place] [address] Electronically authenticated by: [id number] Y Date: 01/14/2025 13:06
--- OUTSIDE RECORDS SUMMARY | 2025-01-14 12:38 | XMS_ITS | CCD ---
Author Organization [facility] Care Team Providers Care Autopsy Assistant Name Role Phone JANETTE ORTEGA Attending DR SULTANA Lipscomb V Consulting Unavailable SHAIKH Bob KENT Primary Care Unavailable JANETTE ORTEGA Admitting Unavailable JANETTE ORTEGA Consulting Unavailable Shaikh Kent MD Unavailable Shaikh Kent MD Primary Care Provider [phone] Abdi Gr MD Primary Care Provider [phone] Drea FIRER RETORT, Jo Unavailable Drea FIRER RETORT, Jo Unavailable JO SHEPARD Attending JESENIA Saenz Attending Unavailable JO SHEPARD Referring JO Cody Attending ABDI Bosch Attending Unavailable Ryan ALMARAZ Attending ABDI Peraza Referring Unavailable Medications Current Medications Medication Drug Class(es) Dates Sig (Normalized) Sig (Original) [id number] 200 actuat albuterol 0.09 mg/actuat metered dose inhaler (15 sources) beta2-Adrenergic Agonist Start: 01-06-2025 End: 01-06-2025 take 2 puff(s) by inhalation every four hours for wheezing albuterol HFA 90 mcg/act inhaler Indications: Chronic obstructive pulmonary disease, unspecified COPD type (CMS/HCC) Inhale 2 puffs every 4 (four) hours if needed for wheezing 18 g 3 01/06/2025 Active alendronic acid 70 mg oral tablet (13 sources) Bisphosphonate Start: 04-13-2024 alendronate (Fosamax) 70 MG tablet Indications: Age-related osteoporosis without current pathological fracture (CMS/HCC) Take 1 tablet (70 mg) by mouth every 7 (seven) days 12 tablet 1 04/13/2024 Active calcium carbonate 1250 mg / cholecalciferol 125 unt oral tablet (13 sources) Vitamin D Start: 11-03-2023 take 1 tablet by mouth twice daily Oyster Shell Calcium + D3 500-10 MG-MCG tablet Indications: Age-related osteoporosis without current pathological fracture (CMS/HCC) Take 1 tablet by mouth twice daily 180 tablet 11/03/2023 Active fluocinonide 0.5 mg/ml topical cream (15 sources) Corticosteroid Start: 07-14-2023 End: 07-07-2024 fluocinonide (Lidex) 0.05 % cream Indications: Rash Apply 1 application topically in the morning and 1 application before bedtime. 15 g 3 07/07/2024 Active 60 actuat fluticasone propionate 0.5 mg/actuat / salmeterol 0.05 mg/actuat dry powder inhaler (13 sources) Corticosteroid, beta2-Adrenergic Agonist Start: 08-12-2023 take 1 puff(s) by inhalation in the morning Fluticasone-Salme terol 500-50 MCG/ACT aerosol powder Inhale 1 puff in the morning and 1 puff before bedtime. 08/12/2023 Active ipratropium bromide 0.2 mg/ml inhalation solution (13 sources) Anticholinergic ipratropium (Atrovent) 0.02 % nebulizer solution Take 3 mL by nebulization every 6 (six) hours Active propranolol hydrochloride 40 mg oral tablet (9 sources) beta-Adrenergic Kenzie Start: 12-14-2024 End: 01-06-2025 take 1 tablet by mouth in the morning propranolol (Inderal) 40 MG tablet Indications: Primary hypertension (CMS/HCC) , Essential tremor Take 1 tablet (40 mg) by mouth in the morning and 1 tablet (40 mg) before bedtime. 60 tablet 01/06/2025 Active Start: 11-11-2024 take 1 tablet by kimberly th twice daily at bedtime propranolol (Inderal) 40 MG tablet Indications: Primary hypertension (CMS/HCC) , Essential tremor TAKE 1 TABLET BY MOUTH TWICE DAILY ( MORNING AND BEFORE BEDTIME) 60 tablet 11/11/2024 Active Start: 08-19-2024 End: 11-17-2024 take 1 tablet by mouth in the morning propranolol (Inderal) 40 MG tablet Indications: Primary hypertension (CMS/HCC) , Essential tremor Take 1 tablet (40 mg) by mouth in the morning and 1 tablet (40 mg) before bedtime. 60 tablet 2 08/19/2024 11/11/2024 Discontinued Completed/Discontinued Medications Medication Drug Class(es) Dates Sig (Normalized) Sig (Original) 120 actuat albuterol 0.1 mg/actuat / ipratropium bromide 0.02 mg/actuat inhalation spray (3 sources) Anticholinergic, beta2-Adrenergic Agonist End: 07-07-2024 ipratropium-albute rol (Combivent Respimat) 20-100 MCG/ACT inhaler Inhale 1 puff in the morning and 1 puff at noon and 1 puff in the evening and 1 puff before bedtime. 07/07/2024 Discontinued (Therapy completed) atenolol 50 mg oral tablet (11 sources) beta-Adrenergic Kenzie Start: 12-25-2023 End: 08-19-2024 take 1 tablet by mouth once daily atenolol (Tenormin) 50 MG tablet Indications: Primary hypertension (CMS/HCC) Take 1 tablet (50 mg) by mouth Daily 90 tablet 1 07/07/2024 08/19/2024 Discontinued (Other) atorvastatin 40 mg oral tablet (9 sources) HMG-CoA Reductase Inhibitor End: 08-19-2024 take 1 tablet by mouth in the morning atorvastatin (Lipitor) 40 MG tablet Take 1 tablet by mouth in the morning. 08/19/2024 Discontinued (Med list cleanup) clobetasol propionate 0.5 mg/ml topical solution (3 [...] Date Documented Da te Episodic/Chronic Allergic reactions (13 sources) Atopic dermatitis of scalp; Translations: [Atopic dermatitis, unspecified] Onset: 10-07-2023 10-07-2023 Chronic Chronic obstructive pulmonary disease and bronchiectasis (15 sources) Pulmonary emphysema; Translations: [Other emphysema] Onset: 10-07-2023 10-07-2023 Chronic Disorders of lipid metabolism (15 sources) Hyperlipidemia; Translations: [Other hyperlipidemia] Onset: 10-07-2023 10-07-2023 Chronic Essential hypertension (20 sources) Essential hypertension; Translations: [Essential (primary) hypertension] Onset: 10-07-2023 10-07-2023 Chronic Osteoporosis (13 sources) Senile osteoporosis; Translations: [Age-related osteoporosis without current pathological fracture] Onset: 10-07-2023 10-07-2023 Chronic Other hereditary and degenerative nervous system conditions (13 sources) Essential tremor; Translations: [Essential tremor] Onset: 08-19-2024 07-21-2024 Chronic Other screening for suspected conditions (not mental disorders or infectious disease) (6 sources) Patient encounter status; Translations: [Encounter for screening mammogram for malignant neoplasm of breast] 07-07-2024 Episodic Other skin disorders (14 sources) Eruption; Translations: [Rash and other nonspecific skin eruption] 07-07-2024 Episodic Residual codes; unclassified (6 sources) Family history of cancer of colon; Translations: [Family history of malignant neoplasm of digestive organs] Onset: 01-06-2025 01-06-2025 Episodic Substance-related disorders (17 sources) Nicotine dependence, cigarettes, with unspecified nicotine-induced disorders; Translations: [Tobacco dependence syndrome] Onset: 01-02-2023 Chronic Past or Other Problems Problem Classification Problem Date Documented Da te Episodic/Chronic Mood disorders (13 sources) Mood disorders Onset: 01-06-2024 Resolved: 01-06-2025 01-06-2024 Other nervous system disorders (16 sources) Involuntary movement; Translations: [Unspecified abnormal involuntary movements] Onset: 07-07-2024 07-07-2024 Episodic Unclassified (2 sources) Patient encounter status 01-06-2025 Results Test Name Value Interpretation Reference Range Facil ity ALL CBC WITH AUTO DIFFon BASOPHILS ABSOLUTE AUTO 0.2 High [facility] Basophils/100 WBC (Bld) 1.3 % 0.2 - 2.0 % [facility] Eosinophils/100 WBC (Bld) 2.5 % 0.9 - 7.0 % [facility] Erythrocyte distribution width (RBC) [Ratio] 12.8 % 11.0 - 15.0 % [facility] Hematocrit (Bld) [Volume fraction] 44 % 36.0 - 48.0 % [facility] Hemoglobin (Bld) [Mass/Vol] 14.3 g/dL 12.0 - 16.0 g/dL [facility] IMMATURE GRANULOCYTES ABS AUTO 0.06 High [facility] Immature granulocytes/100 WBC (Bld) 0.5 % 0.0 - 0.5 % [facility] Interpretation and review of laboratory results Abnormal [facility] LYMPHOCYTES ABSOLUTE AUTO 3.4 [facility] Lymphocytes/100 WBC (Bld) 28.1 % 20.5 - 60.0 % [facility] MCH (RBC) [Entitic mass] 30.8 pg 26.7 - 34.0 pg [facility] MCHC (RBC) [Mass/Vol] 32.5 g/dL 29.9 - 35.2 g/dL [facility] MCV (RBC) [Entitic vol] 94.8 fL 81.0 - 99.0 fL [facility] MONOCYTES ABSOLUTE AUTO 1.4 High [facility] Monocytes/100 WBC (Bld) 11.5 % 1.7 - 12.0 % [facility] NEUTROPHILS ABSOLUTE AUTO 6.7 High [facility] Neutrophils/100 WBC (Bld) 56.1 % 43.0 - 75.0 % [facility] Platelet mean volume (Bld) [Entitic vol] 9.2 fL Low 9.5 - 13.5 fL [facility] are TBH EO # 0.3 [facility] PLT 330 [facility] RBC 4.64 [facility] WBC 11.9 High [facility] LUNG CANCER SCREENINGon 0 01-02-2023 CT [...] by: SULTANA TORRES Date: 2023-01-02 09:31 Normal [facility] Vital Signs Date Time Vital Sign Value Performing Clinician Artie holliday 01-06-2025 13:51-0400 Body height 162.6 cm Abdi Gr MD Work Phone: [facility] 01-06-2025 13:51-0400 Body mass index (BMI) [Ratio] 18.71 kg/m2 Abdi Gr MD Work Phone: [facility] 01-06-2025 13:51-0400 Body temperature 97.81 [degF] Abdi Gr MD Work Phone: [facility] 01-06-2025 13:51-0400 Body weight 49.44 kg Abdi Gr MD Work Phone: [facility] 01-06-2025 13:51-0400 Diastolic blood pressure 50 mm[Hg] Abdi Gr MD Work Phone: [facility] 01-06-2025 13:51-0400 Heart rate 67 /min Abdi Gr MD Work Phone: [facility] 01-06-2025 13:51-0400 Respiratory rate 22 /min Abdi Gr MD Work Phone: [facility] 01-06-2025 13:51-0400 SaO2% (BldA) [Mass fraction] 99 % Abdi Gr MD Work Phone: [facility] 01-06-2025 13:51-0400 Systolic blood pressure 102 mm[Hg] Abdi Gr MD Work Phone: [facility] 08-19-2024 09:30-0500 Body height 162.6 cm Jo Shepard FIRER RETORT Work Phone: [facility] 08-19-2024 09:30-0500 Body mass index (BMI) [Ratio] 19.28 kg/m2 Jo Shepard FIRER RETORT Work Phone: [facility] 08-19-2024 09:30-0500 Body temperature 97.59 [degF] Jo Shepard FIRER RETORT Work Phone: [facility] 08-19-2024 09:30-0500 Body weight 50.94 kg Jo Shepard FIRER RETORT Work Phone: [facility] 08-19-2024 09:30-0500 Diastolic blood pressure 60 mm[Hg] Jo Shepard FIRER RETORT Work Phone: [facility] 08-19-2024 09:30-0500 Heart rate 75 /min Jo Shepard FIRER RETORT Work Phone: [facility] 08-19-2024 09:30-0500 Respiratory rate 16 /min Jo Shepard FIRER RETORT Work Phone: [facility] 08-19-2024 09:30-0500 SaO2% (BldA) [Mass fraction] 98 % Jo Shepard FIRER RETORT Work Phone: [facility] 08-19-2024 09:30-0500 Systolic blood pressure 118 mm[Hg] Jo Shepard FIRER RETORT Work Phone: [facility] 07-21-2024 12:19-0400 Body height 162.6 cm Christopher Brendan DO Work Phone: [facility] 07-21-2024 12:19-0400 Body mass index (BMI) [Ratio] 19.02 kg/m2 Christopher Brendan DO Work Phone: [facility] 07-21-2024 12:19-0400 Body weight 50.26 kg Christopher Brendan DO Work Phone: [facility] 07-21-2024 12:19-0400 Diastolic blood pressure 78 mm[Hg] Christopher Brendan DO Work Phone: [facility] 07-21-2024 12:19-0400 Heart rate 74 /min Christopher Brendan DO Work Phone: [facility] 07-21-2024 12:19-0400 SaO2% (BldA) [Mass fraction] 95 % Christopher Brendan DO Work Phone: [facility] 07-21-2024 12:19-0400 Systolic blood pressure 121 mm[Hg] Christopher Brendan DO Work Phone: [facility] 07-07-2024 14:16-0400 Body mass index (BMI) [Ratio] 18.3 kg/m2 Jo Shepard FIRER RETORT Work Phone: [facility] 07-07-2024 14:16-0400 Body temperature 98.2 [degF] Jo Shepard FIRER RETORT Work Phone: [facility] 07-07-2024 14:16-0400 Body weight 49.9 kg Jo Shepard FIRER RETORT Work Phone: [facility] 07-07-2024 14:16-0400 Diastolic blood pressure 60 mm[Hg] Jo Burnettpatrick FIRER RETORT Work Phone: [facility] 07-07-2024 14:16-0400 Heart rate 75 /min Jo Estestrick FIRER RETORT Work Phone: [facility] 07-07-2024 14:16-0400 SaO2% (BldA) [Mass fraction] 96 % Jo Estestrick FIRER RETORT Work Phone: [facility] 07-07-2024 14:16-0400 Systolic blood pressure 100 mm[Hg] Jo Burnettpatrick FIRER RETORT Work Phone: [facility] Encounters Encounter Date Encounter Type Care Provider Facility Start: 01-26-2025 ambulatory Ryan ALMARAZ Facility :[facility] Start: 01-10-2025 ambulatory Ryan ALMARAZ Facility:[facility] [place] Start: 01-06-2025 End: 01-06-2025 Bamboo flowsheet Abdi Gr MD Work Phone: [facility] Start: 01-06-2025 End: 01-06-2025 Bamboo flowsheet Abdi Gr MD Work Phone: [facility] Start: 01-06-2025 End: 01-06-2025 Office outpatient visit 25 minutes Abdi Gr MD Work Phone: [facility] Comment on above: Primary hypertension (CMS/HCC) (Primary Dx); Chronic obstructive pulmonary disease, unspecified COPD type (CMS/HCC); Essential tremor; Breast cancer screening by mammogram; Colon cancer screening; Family history of colon cancer Start: 01-06-2025 End: 01-06-2025 ambulatory ABDI RG Not Available Start: 11-11-2024 End: 11-11-2024 Refill Jo Drea FIRER RETORT Work Phone: [facility] Comment on above: Primary hypertension (CMS/HCC); Essential tremor Start: 08-19-2024 End: 08-19-2024 Follow-up encounter Jo Estestrick FIRER RETORT Work Phone: [facility] Comment on above: Primary hypertension (CMS/HCC) (Primary Dx); Essential tremor Start: 08-19-2024 End: 08-19-2024 ambulatory JO SHEPARD Not Available Start: 08-04-2024 End: 08-04-2024 [facility] Result Encounter Jo Burnettpatrick FIRER RETORT Work Phone: [facility] Unsolicited Start: 08-04-2024 End: 08-04-2024 [facility] Result Encounter Jo Burnettpatrick FIRER RETORT Work Phone: [facility] Unsolicited Start: 07-21-2024 End: 07-21-2024 Bamboo flowsheet Christopher Brendan DO Work Phone: [facility] Start: 07-21-2024 End: 07-21-2024 Bamboo flowsheet Christopher Brendan DO Work Phone: [facility] Start: 07-21-2024 End: 07-21-2024 Office outpatient new 30 minutes Christopher Brendan DO Work Phone: [facility] Comment on above: Essential tremor (Pr imary Dx); Unspecified abnormal involuntary movements Start: 07-21-2024 End: 07-21-2024 ambulatory CHRISTOPHER BRENDAN Not Available Start: 07-07-2024 End: 07-07-2024 Office outpatient visit 15 minutes Jo Shepard FIRER RETORT Work Phone: [facility] Comment on above: Primary hypertension (CMS/HCC) (Primary Dx); Unspecified abnormal involuntary movements; Other hyperlipidemia (CMS/HCC); Rash; Encounter for screening mammogram for malignant neoplasm of breast Start: 07-07-2024 End: 07-07-2024 ambulatory JO SHEPARD Not Available Start: 07-07-2024 End: 10-02-2024 Bamboo flowsheet Jo Shepard FIRER RETORT Work Phone: [facility] Start: 07-07-2024 End: 07-07-2024 Bamboo flowsheet Jo Shepard FIRER RETORT Work Phone: [facility] Start: 01-02-2023 End: 01-03-2023 ambulatory JANETTE CARTY . Facility: Procedures Date Procedure Procedure Detail Performing Clinician Start: 08-04-2024 ALL CBC WITH AUTO DIFF Jo Segurak FIRER RETORT Work Phone: Start: 07-31-2023 Mammography Jo Jarrett itdavidtrick FIRER RETORT Work Phone: Start: 07-06-2023 Mammography Jo F itdavidtrick FIRER RETORT Work Phone: Plan of Treatment Date Care Activity Detail Author Start: 12-19-2025 Screening for malign ant neoplasm of colon [facility] Start: 08-19-2025 Medicare Annual Wellness (AWV) Medicare Annual Wellness (AWV) [facility] Start: 07-11-2025 End: 07-11-2025 Patient encounter procedure 07/11/2025 1:30 PM EDT Office Visit [facility] [address] [place] [id number] Abdi Gr MD [address] [place] [id number] [facility] Start: 06-06-2025 Influenza vaccination Influenz a Vaccine (Season Ended) [facility] Start: 01-06-2025 End: 03-08-2026 MG Breast - bilateral Screening Bilateral screening mammogram Imaging Routine Breast cancer screening by mammogram Expected: 01/06/2025, Expires: 03/08/2026 [facility] Work Phone: Comment on above: Expected: 01/06/2025 , Expires: 03/08/2026 Start: 01-06-2025 End: 01-06-2025 Patient encounter procedure 01/06/2025 2:00 PM EDT Office Visit [facility] [address] [place] [phone] Abdi Gr MD [address] [place] [phone] Arrived [facility] Comment on above: Arrived Start: 01-05-2025 End: 01-05-2025 Patient encounter procedure 01/05/2025 2:00 PM EDT Office Visit [facility] [address] [place] [phone] Jo Shepard NP [address] [place] [phone] [facility] Start: 07-31-2024 Screening for malign ant neoplasm of breast Mammogram [facility] Start: 07-21-2024 End: 07-21-2024 Patient encounter procedure 07/21/2024 12:30 PM EDT Office Visit [facility] [address] [place] [address] Jesenia Cardona DO [address] [place], [place] [id number] Unspecified abnormal involuntary movements [facility] Comment on above: Unspecified abnormal involuntary movements Start: 07-07-2024 End: 07-07-2024 Patient encounter procedure 07/07/2024 2:30 PM EDT Office Visit [facility] [address] [place] [phone] Jo Shepard NP [address] [place] [phone] Arrived [facility] Comment on above: Arrived Start: 07-07-2024 End: 07-07-2025 CBC W Auto Differential panel - Blood CBC and differential Lab Routine Primary hypertension (CMS/HCC) Expected: 07/07/2024 (Approximate), Expires: 07/07/2025 [facility] Comment on above: Expected: 07/07/2024 (Approximate), Expires: 07/07/2025 Start: 07-07-2024 End: 07-07-2025 Comprehensive metabolic 2000 panel - Serum or Plasma Comprehensive metabolic panel Lab Routine Primary hypertension (CMS/HCC) Expected: 07/07/2024 (Approximate), Expires: 07/07/2025 [facility] Comment on above: Expected: 07/07/2024 (Approximate), Expires: 07/07/2025 Start: 07-07-2024 End: 07-07-2025 Lipid 1996 panel - Serum or Plasma Lipid panel Lab Routine Other hyperlipidemia ([facility]/HCC) Expected: 07/07/2024 (Approximate), Expires: 07/07/2025 [facility] Comment on above: Expected: 07/07/2024 (Approximate), Expires: 07/07/2025 Start: 07-07-2024 End: 09-06-2025 MG Breast - bilateral Screening Bilateral screening mammogram Imaging Routine Encounter for screening mammogram for malignant neoplasm of breast Expected: 07/07/2024, Expires: 09/06/2025 [facility] Comment on above: Expected: 07/07/2024 , Expires: 09/06/2025 Start: 07-07-2024 End: 07-07-2025 Microalbumin/Creatinine panel in random Urine Microalbumin / creatinine urine ratio Lab Routine Primary hypertension (CMS/HCC) Expected: 07/07/2024 (Approximate), Expires: 07/07/2025 [facility] Work Phone: Comment on above: Expected: 07/07/2024 (Approximate), Expires: 07/07/2025 Start: 07-06-2024 Screening for malign ant neoplasm of breast Mammogram [facility] Start: 07-02-2024 Medicare Annual Wellness (AWV) Medicare Annual Wellness (AWV) [facility] Start: 06-06-2024 Influenza vaccination Influenza Vacc ine (#1) [facility] Start: 09-23-2021 Pneumococcal Vaccine : 65+ Years (2 of 2 - PCV) Pneumococcal Vaccine: 65+ Years (2 of 2 - PCV) [facility] Start: 1955 Screening for malign ant neoplasm of colon [facility] Immunizations Immunization Date Immunization Notes Care Provider Fa gary 10-08-2024 influenza virus vacc ine, unspecified formulation Abdi Gr MD Work Phone: [facility] 11-02-2022 Influenza, High-dose Seasonal, Quadrivalent, Preservative Free Jo Shepard FIRER RETORT Work Phone: [facility] 11-02-2022 influenza virus vacc ine, unspecified formulation Jo Shepard FIRER RETORT Work Phone: [facility] 09-23-2020 pneumococcal polysaccharide vaccine, 23 valent Jo Shepard FIRER RETORT Work Phone: [facility] 09-02-2020 Seasonal, quadrivale nt, recombinant, injectable influenza vaccine, preservative free Jo Shepard FIRER RETORT Work Phone: [facility] 10-10-2019 influenza, injectabl e, quadrivalent, preservative free Jo Shepard FIRER RETORT Work Phone: [facility] 08-14-2018 influenza, injectabl e, quadrivalent, preservative free Jo Shepard FIRER RETORT Work Phone: [facility] 08-04-2017 influenza, injectabl e, quadrivalent, preservative free Jo Shepard FIRER RETORT Work Phone: [facility] Payers Date Payer Category Payer Medicare [employer] MEDIC[employer] ADVANTAGE [facility] MEDICARE ADVANTAGE [id number] 2023-Present [address] [place] [address] [id number] 2023 Medicare (Managed Care) [employer]URMAN ADVANTAGE [id number] 2023 Medicare [id number] 2022 Private Health Insurance GISELLA N [id number] 2022 Unknown [employer] [place] [id number] 2022-Present [phone] [address] [place] [address] [id number] 1959 Unknown [id number] 1957 Unknown [id number] 1957 Unknown [id number] 1957 Unknown [id number] 1957 Unknown [id number] 1957 Unknown [id number] 1957 Unknown [id number] Social History Date Type Detail Facility Start: 01-06-2024 End: 08-19-2024 Tobacco smoking status NHIS Smokes tobacco daily [facility] History of tobacco use Cigarette Smoker N [facility] Start: 01-06-2024 End: 01-06-2025 Cigarettes smoked current (pack per day) - Reported 0.5 [facility] History of tobacco use Passive smoker [facility] Start: 01-06-2024 End: 08-19-2024 Tobacco use and exposure Smokeless tobacco non-user [facility] Start: 01-06-2024 End: 01-06-2025 Alcoholic beverage intake Lifetime non-drinker (finding) [facility] Start: 01-06-2024 End: 01-06-2025 Tobacco use panel [facility] Start: 09-08-2023 Tobacco Comment *current smoke r, frequency unknown [facility] Start: 1955 Sex assigned at Not on file N [facility] Clinical Notes 07-07-2024 to 01-06-2025 Abdi Gr MD - 01/06/2025 5:16 PM EDFahad Gr MD - 01/06/2025 5:14 PM EDFahad Gr MD - 01/06/2025 5:14 PM EDaFhad Gr MD - 01/06/2025 5:14 PM EDTPatient Instructions Note Date & Type Note Facility 01-06-2025 History of Presen t illness Narrative Associated Problem(s): Family history of colon cancer Recent episode of rectal bleeding and family history colon cancer in brother. Refer for colonoscopy. Associated Problem(s): Primary hypertension (CMS/HCC) BP controlled and monitor PRN. Associated Problem(s): Essential tremor Mild symptoms but tolerable and continue propranolol. Associated Problem(s): COPD (chronic obstructive pulmonary disease) (CMS/HCC) Symptoms stable and follow with pulmonology. Images from the original note were not included. Subjective Patient ID: Carlos Bennett is a 69 y.o. female who presents for Hypertension. Follow up HTN, COPD, and tremor. Checking BP PRN and typically controlled. BP normal today. Taking medication daily and tolerating without side effects. Tremor stable with inderal. Continues to have occasional shaking but mild. Overall tolerable with medication. COPD stable. Mild SOB with exertion. No cough or sputum. Continues to use inhalers daily. Following with pulmonology. Reports recent episode of blood with BM few weeks ago. Noticed when having only small BM and straining. Resolved and thought hemorrhoids. Prior cologuard normal in 2022. Brother recently diagnosed with colon cancer and never had colonoscopy. Review of Systems Respiratory: Negative for cough, shortness of breath and wheezing. Cardiovascular: Negative for chest pain and palpitations. Gastrointestinal: Negative for abdominal pain, diarrhea, nausea and vomiting. Genitourinary: Negative for dysuria. Objective Physical Exam Constitutional: General: She is not in acute distress. Appearance: Normal appearance. HENT: Head: Normocephalic. Right Ear: Tympanic membrane normal. Left Ear: Tympanic membrane normal. Eyes: Extraocular Movements: Extraocular movements intact. Pupils: Pupils are equal, round, and reactive to light. Cardiovascular: Rate and Rhythm: Normal rate and regular rhythm. Heart sounds: No murmur heard. No friction rub. No gallop. Pulmonary: Effort: Pulmonary effort is normal. Breath sounds: Normal breath sounds. No wheezing, rhonchi or rales. Abdominal: General: Bowel sounds are normal. There is no distension. Palpations: Abdomen is soft. Tenderness: There is no abdominal tenderness. There is no guarding or rebound. Musculoskeletal: Cervical back: Neck supple. Right lower leg: No edema. Left lower leg: No edema. Neurological: Mental Status: She is alert. Assessment/Plan Problem List Items Addressed This Visit Primary hypertension (CMS/HCC) - Primary BP controlled and monitor PRN. Relevant Medications propranolol (Inderal) 40 MG tablet COPD (chronic obstructive pulmonary disease) (CMS/HCC) Symptoms stable and follow with pulmonology. Relevant Medications albuterol HFA 90 mcg/act inhaler Essential tremor Mild symptoms but tolerable and continue propranolol. Relevant Medications propranolol (Inderal) 40 MG tablet Family history of colon cancer Recent episode of rectal bleeding and family history colon cancer in brother. Refer for colonoscopy. Relevant Orders Ambulatory referral to General Surgery Other Visit Diagnoses Breast cancer screening by mammogram Relevant Orders Bilateral screening mammogram Colon cancer screening Relevant Orders Ambulatory referral to General Surgery documented in this encounter [facility] 08-19-2024 History of Presen t illness Narrative Images from the original note were not included. Subjective Patient ID: Carlos Bennett is a 69 y.o. female who presents for No chief complaint on file.. HPI Review of Systems Objective Physical Exam Assessment/Plan Images from the original note were not included. Subjective : Chief Complaint: Carlos Bennett is an 69 y.o. female here for an annual wellness visit. I have reviewed and reconciled the history and medication list with the patient today. Current Outpatient Medications Medication Sig Dispense Refill albuterol HFA 90 mcg/act inhaler Inhale 2 puffs every 4 (four) hours if needed for wheezing alendronate (Fosamax) 70 MG tablet Take 1 tablet (70 mg) by mouth every 7 (seven) days 12 tablet 1 fluocinonide (Lidex) 0.05 % cream Apply 1 application topically in the morning and 1 application before bedtime. 15 g 3 Fluticasone-Salmeterol 500-50 MCG/ACT aerosol powder Inhale 1 puff in the morning and 1 puff before bedtime. ipratropium (Atrovent) 0.02 % nebulizer solution Take 3 mL by nebulization every 6 (six) hours Oyster Shell Calcium + D3 500-10 MG-MCG tablet Take 1 tablet by mouth twice daily 180 tablet 0 propranolol (Inderal) 40 MG tablet Take 1 tablet (40 mg) by mouth in the morning and 1 tablet (40 mg) before bedtime. 60 tablet 2 No current facility-administered medications for this visit. Review of Systems Constitutional: Negative for activity [...] intolerance, heat intolerance, polydipsia, polyphagia and polyuria. List of current healthcare providers: Patient Care Team: Abdi Gr MD as PCP - General (Family Medicine) Shaikh Donte MD as PCP - Alvaro Shepard NP as Nurse Practitioner (Family Medicine) Medicare Annual Visit Over the past 2 weeks, how often have you been bothered by any of the following problems? Little interest or pleasure in doing things: Not at all Feeling down, depressed, or hopeless: Not at all Patient Health Questionnaire-2 Score: 0 Over the past 2 weeks, how often have you been bothered by any of the following problems? Trouble falling or staying asleep, or sleeping too much: Not at all Feeling tired or having little energy: Not at all Poor appetite or overeating: Not at all Feeling bad about yourself - or that you are a failure or have let yourself or your family down: Not at all Trouble concentrating on things, such as reading the newspaper or watching television: Not at all Moving or speaking so slowly that other people could have noticed? Or the opposite - being so fidgety or restless that you have been moving around a lot more than usual.: Not at all Thoughts that you would be better off or hurting yourself in some way: Not at all Patient Health Questionnaire-9 Score: 0 [place] Fall Risk History of Falling, Immediate or Within 3 Months: No Health Risk Assessment Form Do you need help eating, bathing, using the toilet, dressing, or getting around your home?: No Can you prepare your own meals?: Yes Can you do your own housework without help?: Yes Can you shop for groceries or clothes without help?: Yes Do you exercise for about 20 minutes 3 or more days a week?: Yes How confident are you that you can control and manage most of your health problems?: Very confident Can you mange your money, credit cards and accounts, pay bills and taxes?: Yes Cognitive Screening Three Word Registration: Banana, [place], Chair Clock Drawing: Normal Clock - 2 Three Word Recall: All 3 words correct - 3 Total Score (0-5 Points): 5 Advance Care Planning Do you have a living will?: No Do you have a medical power of personal injury attorney?: No Objective : BP 118/60 Pulse 75 Temp 97.6 F Resp 16 Ht 5' 4 Wt 112 lb 4.8 oz LMP (LMP Unknown) SpO2 98% BMI 19.28 kg/m No results found. Physical Exam Vitals reviewed. Constitutional: Appearance: Normal [...] and oriented to person, place, and time. Comments: Essential tremors; Baseline for patient. Psychiatric: Mood and Affect: Mood normal. Behavior: Behavior normal. Assessment/Plan : The following health maintenance schedule was reviewed with the patient and provided in printed form in the after visit summary: Health Maintenance Topic Date Due Pneumococcal Vaccine: 65+ Years (2 of 2 - PCV) 09/23/2021 Influenza Vaccine (1) 06/06/2024 Medicare Annual Wellness (AWV) 07/02/2024 Mammogram 07/31/2024 Colorectal Cancer Screening 12/19/2025 Advance Care Planning Pt Provided information on Advance Care Directives. No orders of the defined types were placed in this encounter. Electronically signed by Jo Shepard NP on August 19, 2024 documented in this encounter [facility] 07-21-2024 History of Presen t illness Narrative Images from the original note were not included. Chief Complaint: involuntary movements Subjective Carlos Bennett, 69 y.o., female Carlos is here for a neurologic consult at the request of Jo Shepard [employer] for abnormal involuntary movements. Patient states she [...] , wrist extensors , wrist flexor , director hris strength 5/5. LUE Strength deltoid , biceps , triceps , wrist extensors , wrist flexor , director hris strength 5/5. RLE Strength illopsoas, quadriceps, tibialis [...] reflex 2+ . Lo's sign negative. Coordination: [id number] testing and rapid alternating movements are normal [...] and return instructions documented in this encounter [facility] 07-07-2024 History of Presen t illness Narrative [...] referral to Neurology documented in this encounter [facility] 07-07-2024 Instructions Jo Shepard NP - 07/07/2024 [...] sleep per night. documented in this encounter [facility] Healthcare Evaluation note Diagnosis Primary hypertension (CMS/HCC)- Primary Unspecified essential hypertension Unspecified abnormal involuntary movements Other hyperlipidemia (CMS/HCC) Rash Rash and other nonspecific skin eruption Encounter for screening mammogram for malignant neoplasm of breast documented in this encounter [facility] HealthcareEvaluation note* Diagnosis Tobacco dependency- Primary Tobacco use disorder [...] involuntary movements documented in this encounter [facility]* Diagnosis Tobacco dependency- Primary Tobacco use disorder [...] screening mammogram for malignant neoplasm of breast Primary hypertension (CMS/HCC)- Primary Unspecified essential hypertension Essential tremor documented in this encounter [facility]* Diagnosis Tobacco dependency- Primary Tobacco use disorder [...] screening mammogram for malignant neoplasm of breast Primary hypertension (CMS/HCC) Unspecified essential hypertension Essential tremor documented [facility]* Diagnosis Tobacco dependency- Primary Tobacco use disorder Primary hypertension (CMS/HCC) Unspecified essential hypertension Age-related osteoporosis without current pathological fracture (CMS/HCC) Other hyperlipidemia Other emphysema (CMS/HCC) Other emphysema Atopic dermatitis of scalp Primary hypertension (CMS/HCC)- Primary Unspecified essential hypertension Other hyperlipidemia Age-related osteoporosis without current pathological fracture (CMS/HCC) Primary hypertension (CMS/HCC)- Primary Unspecified essential hypertension Unspecified abnormal involuntary movements Other hyperlipidemia Rash Rash and other nonspecific skin eruption Encounter for screening mammogram for malignant neoplasm of breast Primary hypertension (CMS/HCC)- Primary Unspecified essential hypertension Chronic obstructive pulmonary disease, unspecified COPD type (CMS/HCC) Essential tremor Breast cancer screening by mammogram Colon cancer screening Special screening for malignant neoplasms, colon Family history of colon cancer Family history of malignant neoplasm of gastrointestinal tract [facility] Consultation (Routine) - Authorized Specialty Diagnoses / Procedures Referred By Danielito jesus Referred To Contact Neurology Diagnoses Unspecified abnormal involuntary movements Procedures [place] OFFICE/OUTPATIENT NEW HIGH MDM 60 MINUTES Jo Shepard NP [address] [place] [address] Max Encinas MD [address] [place] [address] Referral ID Status Reason Start Date Expiration Date Visits Requested Visits Authorized [id number] Authorized Specialty Services Required 07/07/2024 01/03/2025 [facility] N[facility]* Consultation (Routine) - Closed Specialty Diagnoses / Procedures Referred By Danielito jesus Referred To Contact Neurology Diagnoses Unspecified abnormal involuntary movements Procedures [place] OFFICE/OUTPATIENT NEW HIGH MDM 60 MINUTES Jo Shepard NP [address] [place] [address] Phone: tel: fax: Max Encinas MD [address] [place] [address] Phone: tel: fax: Referral ID Status Reason Start Date Expiration Date V isits Requested Visits Authorized [id number] Closed Specialty Services Required 07/07/2024 01/03/2025 1 1 [facility] Summary Purpose Family History No Family History Records FoundNo Family History Records FoundNo Family History Records Found Advance Directives No Advanced Directives Records FoundNo Advanced Directives Records FoundNo Advanced Directives Records Found Additional Source Comments INFORMATION SOURCE (unrecogn ized section and content) DATE CREATED AUTHOR 01/10/2023 [facility] DATE CREATED AUTHOR AUTHOR'S ORGANIZ ATION 01/09/2025 [facility] EPIC DATE CREATED AUTHOR AUTHOR'S ORGANIZ ATION 01/11/2025 [facility] Care Teams (unrecognized sec tion and content) Autopsy Assistant Relationship Specialty Start Date End Date Shaikh Kent MD [address] [place] [address] PCP - Alvaro HERNANDEZ 10/06/23 Shaikh Kent MD [address] [place] [address] PCP - General Internal Medicine 01/06/24 Autopsy Assistant Relationship Specialty Start Date End Date Shaikh Kent MD [address] [place] [phone] PCP - Alvaro HERNANDEZ 10/06/23 Shaikh Kent MD [address] [place] [address] PCP - General Internal Medicine 01/06/24 Autopsy Assistant Relationship Specialty Start Date End Date Shaikh Kent MD [address] [place] [address] PCP Parul John MA 10/06/23 Shaikh Kent MD [address] [place] [address] PCP - General Internal Medicine 01/06/24 Autopsy Assistant Relationship Specialty Start Date End Date Shaikh Kent MD [address] [place] [address] PCP - Alvaro HERNANDEZ 10/06/23 Shaikh Kent MD [address] [place] [address] PCP - General Internal Medicine 01/06/24 Autopsy Assistant Relationship Specialty Start Date End Date Shaikh Kent MD [address] [place] [address] PCP - Alvaro HERNANDEZ 10/06/23 Shaikh Kent MD [address] [place] [address] PCP - General Internal Medicine 01/06/24 Autopsy Assistant Relationship Specialty Start Date End Date Shaikh Kent MD [address] [place] [address] PCP - Alvaro HERNANDEZ 10/06/23 Abdi Gr MD [address] [place] [address] PCP - General Family Medicine 08/19/24 Jo Shepard NP [address] [place] [address] Nurse Practitioner Family Medicine 08/19/24 Autopsy Assistant Relationship Specialty Start Date End Date Abdi Gr MD [address] [place] [address] PCP - General Family Medicine 08/19/24 Jo Shepard NP [address] [place] [address] Nurse Practitioner Family Medicine 08/19/24 Autopsy Assistant Relationship Specialty Start Date End Date Shaikh Kent MD [address] [place] [address] PCP Parul John MA 10/06/23 Abdi Gr MD [address] [place] [address] PCP - General Family Medicine 08/19/24 Jo Shepard NP [address] [place] [address] Nurse Practitioner Family Medicine 08/19/24 Autopsy Assistant Relationship Specialty Start Date End Date Shaikh Kent MD [address] [place] [address] PCP Parul John MA 10/06/23 Abdi Gr MD [address] [place] [address] PCP - General Family Medicine 08/19/24 Reason for Visit (unrecogniz ed section and content) Reason Comments Follow-up Reason Comments Med Refill Reason Comments Hypertension FOR RECORDS PERTAINING TO PATIENTS WHO ARE [...] BE BASED ON THE PRIMARY CLINICAL RECORDS. [employer]. provides no warranty or guarantee of the accuracy or completeness of information in this document.
== END 2025-01-14 12:34 | disposition home or self-care (01) ==
LOC: CT 12:34
PROVIDERS: PCP Family Medicine; Visit Provider Internal Medicine
DX: F17.219 Nicotine dependence, cigarettes, with unspecified nicotine-induced disorders (principal); Z12.2 Encounter for screening for malignant neoplasm of respiratory organs
CPT/HCPCS: 71271

== ENCOUNTER 2025-01-14 12:36 | Outpatient (OUT) | payer MEDICARE, SELFPAY ==
--- NOTE | 2025-01-14 12:38 | MM_ITS ---
Patient Name: CARLOS BENNETT MR#: [id number] : 1955 Exam Date: 01/14/2025 Ordering Doctor: DR Abdi Phillips . RADIOLOGY REPORT PROCEDURE: MM TOMOSYNTHESIS SCREENING BI COMPARISON: MM TOMOSYNTHESIS SCREENING BI, 07/31/2023. MG MAMM SCREEN 3D YEE CAD, 06/26/2021. MG MAMM YEE SCRN W CAD DIG, 03/18/2017. MG MAMM YEE SCRN W CAD DIG, 08/22/2014. INDICATIONS: Screening Calculator Name NCI Breast Cancer Risk Assessment Tool 5 Year Breast Cancer Risk 2.90% Lifetime Breast Cancer Risk 9.70% Personal Breast Cancer No Personal Ovarian Cancer No Treatments None Family Cancers Mother with breast cancer at age 50; Father with lung cancer at age 87; Sister with lung cancer at age 72. LOCATION: [facility] BREAST COMPOSITION: The breasts are extremely dense, which lowers the sensitivity of mammography. FINDINGS: RIGHT BREAST: No significant suspicious finding. LEFT BREAST: No significant suspicious finding. DIAGNOSTIC CATEGORY 1--NEGATIVE. RECOMMENDATIONS: ROUTINE MAMMOGRAM AND CLINICAL EVALUATION IN 12 MONTHS. PLEASE NOTE: A NORMAL MAMMOGRAM DOES NOT EXCLUDE THE POSSIBILITY OF BREAST CANCER. A CLINICALLY SUSPICIOUS PALPABLE LUMP SHOULD BE BIOPSIED. Dictated by: Joseph Grier DO on 01/14/2025 at 13:46 Approved by: Joseph Grier DO on 01/14/2025 at 13:48
--- OUTSIDE RECORDS SUMMARY | 2025-01-14 12:41 | XMS_ITS | CCD ---
Author Organization [facility] Care Team Providers Care Plastics Supervisor Name Role Phone JANETTE ORTEGA Attending DR SULTANA Lipscomb V Consulting Unavailable SHAIKH Bob KENT Primary Care Unavailable JANETTE ORTEGA Admitting Unavailable JANETTE ORTEGA Consulting Unavailable Shaikh Kent MD Unavailable Shaikh Kent MD Primary Care Provider Abdi Gr MD Primary Care Provider Drea SENIOR HADOOP DEVELOPER, Jo Unavailable Drea SENIOR HADOOP DEVELOPER, Jo Unavailable JO SHEPARD Attending JESENIA Saenz Attending Unavailable JO SHEPARD Referring JO Cody Attending ABDI Bsoch Attending Unavailable Ryan ALMARAZ Attending ABDI Peraza Referring Unavailable Medications Current Medications Medication Drug Class(es) Dates Sig (Normalized) Sig (Original) [id number] 200 actuat albuterol 0.09 mg/actuat metered dose [...] AUTO DIFFon BASOPHILS ABSOLUTE AUTO 0.2 High [facility] Basophils/100 WBC (Bld) 1.3 % 0.2 - 2.0 % [facility] Eosinophils/100 WBC (Bld) 2.5 % 0.9 - 7.0 % [facility] Erythrocyte distribution width (RBC) [Ratio] 12.8 % 11.0 - 15.0 % [facility] Hematocrit (Bld) [Volume fraction] 44 % 36.0 - 48.0 % [facility] Hemoglobin (Bld) [Mass/Vol] 14.3 g/dL 12.0 - 16.0 g/dL [facility] IMMATURE GRANULOCYTES ABS AUTO 0.06 High [facility] Immature granulocytes/100 WBC (Bld) 0.5 % 0.0 - 0.5 % [facility] Interpretation and review of laboratory results Abnormal [facility] LYMPHOCYTES ABSOLUTE AUTO 3.4 [facility] Lymphocytes/100 WBC (Bld) 28.1 % 20.5 - 60.0 % [facility] MCH (RBC) [Entitic mass] 30.8 pg 26.7 - 34.0 pg [facility] MCHC (RBC) [Mass/Vol] 32.5 g/dL 29.9 - 35.2 g/dL [facility] MCV (RBC) [Entitic vol] 94.8 fL 81.0 - 99.0 fL [facility] MONOCYTES ABSOLUTE AUTO 1.4 High [facility] Monocytes/100 WBC (Bld) 11.5 % 1.7 - 12.0 % [facility] NEUTROPHILS ABSOLUTE AUTO 6.7 High [facility] Neutrophils/100 WBC (Bld) 56.1 % 43.0 - 75.0 % [facility] Platelet mean volume (Bld) [Entitic vol] 9.2 fL Low 9.5 - 13.5 fL [facility] are [facility] EO # 0.3 [facility] PLT 330 [facility] RBC 4.64 [facility] WBC 11.9 High [facility] [...] by: SULTANA TORRES Date: 2023-01-02 09:31 Normal [facility] Vital Signs Date Time Vital Sign Value Performing Clinician Artie holliday 01-06-2025 13:51-0400 Body height 162.6 cm Abdi Gr MD Work Phone: [facility] 01-06-2025 13:51-0400 Body mass index (BMI) [Ratio] 18.71 kg/m2 Abdi Gr MD Work Phone: [facility] 01-06-2025 13:51-0400 Body temperature 97.81 [degF] Abdi Gr MD Work Phone: [facility] 01-06-2025 13:51-0400 Body weight 49.44 kg Abdi Gr MD Work Phone: [facility] 01-06-2025 13:51-0400 Diastolic blood pressure 50 mm[Hg] Abdi Gr MD Work Phone: [facility] 01-06-2025 13:51-0400 Heart rate 67 /min Abdi Gr MD Work Phone: [facility] 01-06-2025 13:51-0400 Respiratory rate 22 /min Abdi Gr MD Work Phone: [facility] 01-06-2025 13:51-0400 SaO2% (BldA) [Mass fraction] 99 % Abdi Gr MD Work Phone: [facility] 01-06-2025 13:51-0400 Systolic blood pressure 102 mm[Hg] Abdi Gr MD Work Phone: [facility] 08-19-2024 09:30-0500 Body height 162.6 cm Jo Shepard SENIOR HADOOP DEVELOPER Work Phone: [facility] 08-19-2024 09:30-0500 Body mass index (BMI) [Ratio] 19.28 kg/m2 Jo Shepard SENIOR HADOOP DEVELOPER Work Phone: [facility] 08-19-2024 09:30-0500 Body temperature 97.59 [degF] Jo Shepard SENIOR HADOOP DEVELOPER Work Phone: [facility] 08-19-2024 09:30-0500 Body weight 50.94 kg Jo Shepard SENIOR HADOOP DEVELOPER Work Phone: [facility] 08-19-2024 09:30-0500 Diastolic blood pressure 60 mm[Hg] Jo Shepard SENIOR HADOOP DEVELOPER Work Phone: [facility] 08-19-2024 09:30-0500 Heart rate 75 /min Jo Shepard SENIOR HADOOP DEVELOPER Work Phone: [facility] 08-19-2024 09:30-0500 Respiratory rate 16 /min Jo Shepard SENIOR HADOOP DEVELOPER Work Phone: [facility] 08-19-2024 09:30-0500 SaO2% (BldA) [Mass fraction] 98 % Jo Shepard SENIOR HADOOP DEVELOPER Work Phone: [facility] 08-19-2024 09:30-0500 Systolic blood pressure 118 mm[Hg] Jo Shepard SENIOR HADOOP DEVELOPER Work Phone: [facility] 07-21-2024 12:19-0400 Body height 162.6 cm Christopher Brendan DO Work Phone: [facility] 07-21-2024 12:19-0400 Body mass index (BMI) [Ratio] 19.02 kg/m2 Christopher Brendan DO Work Phone: [facility] 07-21-2024 12:19-0400 Body weight 50.26 kg Christopher Brendan DO Work Phone: [facility] 07-21-2024 12:19-0400 Diastolic blood pressure 78 mm[Hg] Christopher Brendan DO Work Phone: [facility] 07-21-2024 12:19-0400 Heart rate 74 /min Christopher Brendan DO Work Phone: [facility] 07-21-2024 12:19-0400 SaO2% (BldA) [Mass fraction] 95 % Christopher Brendan DO Work Phone: [facility] 07-21-2024 12:19-0400 Systolic blood pressure 121 mm[Hg] Christopher Brendan DO Work Phone: [facility] 07-07-2024 14:16-0400 Body mass index (BMI) [Ratio] 18.3 kg/m2 Jo Shepard SENIOR HADOOP DEVELOPER Work Phone: [facility] 07-07-2024 14:16-0400 Body temperature 98.2 [degF] Jo Shepard SENIOR HADOOP DEVELOPER Work Phone: [facility] 07-07-2024 14:16-0400 Body weight 49.9 kg Jo Shepard SENIOR HADOOP DEVELOPER Work Phone: [facility] 07-07-2024 14:16-0400 Diastolic blood pressure 60 mm[Hg] Jo Burnettpatrick SENIOR HADOOP DEVELOPER Work Phone: [facility] 07-07-2024 14:16-0400 Heart rate 75 /min Jo Estestrick SENIOR HADOOP DEVELOPER Work Phone: [facility] 07-07-2024 14:16-0400 SaO2% (BldA) [Mass fraction] 96 % Jo Estestrick SENIOR HADOOP DEVELOPER Work Phone: [facility] 07-07-2024 14:16-0400 Systolic blood pressure 100 mm[Hg] Jo Burnettpatrick SENIOR HADOOP DEVELOPER Work Phone: [facility] Encounters Encounter Date Encounter Type Care Provider Facility Start: 01-26-2025 ambulatory Ryan ALMARAZ Facility :[facility] Start: 01-10-2025 ambulatory Ryan ALMARAZ Facility:[facility] [place] Start: 01-06-2025 End: 01-06-2025 Bamboo flowsheet Abdi [...] cancer Start: 01-06-2025 End: 01-06-2025 ambulatory ABDI GR Not Available Start: 11-11-2024 End: 11-11-2024 Refill Jo Drea SENIOR HADOOP DEVELOPER Work Phone: [facility] Comment on above: Primary hypertension (CMS/HCC); Essential tremor Start: 08-19-2024 End: 08-19-2024 Follow-up encounter Jo Estestrick SENIOR HADOOP DEVELOPER Work Phone: [facility] Comment on above: Primary hypertension (CMS/HCC) (Primary Dx); Essential tremor Start: 08-19-2024 End: 08-19-2024 ambulatory JO SHEPARD Not Available Start: 08-04-2024 End: 08-04-2024 [facility] Result Encounter Jo Burnettpatrick SENIOR HADOOP DEVELOPER Work Phone: [facility] Unsolicited Start: 08-04-2024 End: 08-04-2024 [facility]inis[facility] Result Encounter Jo Burnettpatrick SENIOR HADOOP DEVELOPER Work Phone: [facility] Unsolicited Start: [...] Office outpatient visit 15 minutes Jo Shepard SENIOR HADOOP DEVELOPER Work Phone: [facility] Comment on above: Primary hypertension (CMS/HCC) (Primary Dx); Unspecified abnormal involuntary movements; Other hyperlipidemia (CMS/HCC); Rash; Encounter for screening mammogram for malignant neoplasm of breast Start: 07-07-2024 End: 07-07-2024 ambulatory JO SHEPARD Not Available Start: 07-07-2024 End: 10-02-2024 Bamboo flowsheet Jo Shepard SENIOR HADOOP DEVELOPER Work Phone: [facility] Start: 07-07-2024 End: 07-07-2024 Bamboo flowsheet Jo Shepard SENIOR HADOOP DEVELOPER Work Phone: [facility] Start: 01-02-2023 End: 01-03-2023 ambulatory JANETTE CARTY . Facility: Procedures Date Procedure Procedure Detail Performing Clinician Start: 08-04-2024 ALL CBC WITH AUTO DIFF Jo Segurak SENIOR HADOOP DEVELOPER Work Phone: Start: 07-31-2023 Mammography Jo Jarrett itdavidtrick SENIOR HADOOP DEVELOPER Work Phone: Start: 07-06-2023 Mammography Jo F itdavidtrick SENIOR HADOOP DEVELOPER Work Phone: Plan of Treatment Date Care Activity Detail Author Start: 12-19-2025 Screening for malign ant neoplasm of colon [facility] Start: 08-19-2025 Medicare Annual Wellness (AWV) Medicare Annual Wellness (AWV) [facility] Start: 07-11-2025 End: 07-11-2025 Patient encounter procedure 07/11/2025 1:30 PM EDT Office Visit [facility] [address] [place] [phone] Abdi Gr MD [address] [place] [phone] [facility] Start: 06-06-2025 Influenza vaccination Influenz a Vaccine (Season Ended) [facility] Start: 01-06-2025 End: 03-08-2026 MG Breast - bilateral Screening Bilateral screening mammogram Imaging Routine Breast cancer screening by mammogram Expected: 01/06/2025, Expires: 03/08/2026 [facility] Work Phone: Comment on above: Expected: 01/06/2025 , Expires: 03/08/2026 Start: 01-06-2025 End: 01-06-2025 Patient encounter procedure 01/06/2025 2:00 PM EDT Office Visit [facility] [address] [place] [address] Abdi Gr MD [address] [place] [phone] Arrived [facility] Comment on above: Arrived Start: 01-05-2025 End: 01-05-2025 Patient encounter procedure 01/05/2025 2:00 PM EDT Office Visit [facility] [address] [place] [phone] Jo Shepard NP [address] [place] [phone] [facility] Start: 07-31-2024 Screening for malign ant neoplasm of breast Mammogram [facility] Start: 07-21-2024 End: 07-21-2024 Patient encounter procedure 07/21/2024 12:30 PM EDT Office Visit [facility] [address] [place] [address] Jesenia Cardona DO [address] [place], [place] [id number] Unspecified abnormal involuntary movements [facility] Comment on above: Unspecified abnormal involuntary movements Start: 07-07-2024 End: 07-07-2024 Patient encounter procedure 07/07/2024 2:30 PM EDT Office Visit [facility] [address] [place] [phone] Jo Shepard NP [address] [place] [phone] Arrived [facility] Comment on above: Arrived Start: 07-07-2024 End: 07-07-2025 CBC W Auto Differential panel - Blood CBC and differential Lab Routine Primary hypertension (CMS/HCC) Expected: 07/07/2024 (Approximate), Expires: 07/07/2025 [facility] Comment on above: Expected: 07/07/2024 (Approximate), Expires: 07/07/2025 Start: 07-07-2024 End: 07-07-2025 Comprehensive metabolic 2000 panel - Serum or Plasma Comprehensive metabolic panel Lab Routine Primary hypertension (CMS/HCC) Expected: 07/07/2024 (Approximate), Expires: 07/07/2025 [facility] Comment on above: Expected: 07/07/2024 (Approximate), Expires: 07/07/2025 Start: 07-07-2024 End: 07-07-2025 Lipid 1996 panel - Serum or Plasma Lipid panel Lab Routine Other hyperlipidemia ([facility]/HCC) Expected: 07/07/2024 (Approximate), Expires: 07/07/2025 [facility] Comment on above: Expected: 07/07/2024 (Approximate), Expires: 07/07/2025 Start: 07-07-2024 End: 09-06-2025 MG Breast - bilateral Screening Bilateral screening mammogram Imaging Routine Encounter for screening mammogram for malignant neoplasm of breast Expected: 07/07/2024, Expires: 09/06/2025 [facility] Comment on above: Expected: 07/07/2024 , Expires: 09/06/2025 Start: 07-07-2024 End: 07-07-2025 Microalbumin/Creatinine panel in random Urine Microalbumin / creatinine urine ratio Lab Routine Primary hypertension (CMS/HCC) Expected: 07/07/2024 (Approximate), Expires: 07/07/2025 [facility] Work Phone: Comment on above: Expected: 07/07/2024 (Approximate), Expires: 07/07/2025 Start: 07-06-2024 Screening for malign ant neoplasm of breast Mammogram [facility] Start: 07-02-2024 Medicare Annual Wellness (AWV) Medicare Annual Wellness (AWV) [facility] Start: 06-06-2024 Influenza vaccination Influenza Vacc ine (#1) [facility] Start: 09-23-2021 Pneumococcal Vaccine : 65+ Years (2 of 2 - PCV) Pneumococcal Vaccine: 65+ Years (2 of 2 - PCV) [facility] Start: 1955 Screening for malign ant neoplasm of colon [facility] Immunizations Immunization Date Immunization Notes Care Provider Fa gary 10-08-2024 influenza virus vacc ine, unspecified formulation Abdi Gr MD Work Phone: [facility] 11-02-2022 Influenza, High-dose Seasonal, Quadrivalent, Preservative Free Jo Shepard SENIOR HADOOP DEVELOPER Work Phone: [facility] 11-02-2022 influenza virus vacc ine, unspecified formulation Jo Shepard SENIOR HADOOP DEVELOPER Work Phone: [facility] 09-23-2020 pneumococcal polysaccharide vaccine, 23 valent Jo Shepard SENIOR HADOOP DEVELOPER Work Phone: [facility] 09-02-2020 Seasonal, quadrivale nt, recombinant, injectable influenza vaccine, preservative free Jo Shepard SENIOR HADOOP DEVELOPER Work Phone: [facility] 10-10-2019 influenza, injectabl e, quadrivalent, preservative free Jo Shepard SENIOR HADOOP DEVELOPER Work Phone: [facility] 08-14-2018 influenza, injectabl e, quadrivalent, preservative free Jo Shepard SENIOR HADOOP DEVELOPER Work Phone: [facility] 08-04-2017 influenza, injectabl e, quadrivalent, preservative free Jo Shepard SENIOR HADOOP DEVELOPER Work Phone: [facility] Payers Date Payer Category Payer Medicare [employer]IC[employer] AD[facility] MEDICARE ADVANTAGE [id number] 2023-Present [address] [place] [address] [id number] 2023 Medicare (Managed Care) ALVARO THURMAN ADVANTAGE [id number] 2023 Medicare [id number] 2022 Private Health Insurance GISELLA N [id number] 2022 Unknown [employer] [place] [id number] 2022-Present [phone] [address] [place] [id number] 1959 Unknown [id number] 1957 Unknown [id number] 1957 Unknown [id number] 1957 Unknown [id number] 1957 Unknown [id number] 1957 Unknown [id number] 1957 Unknown [id number] Social History Date Type Detail Facility Start: 01-06-2024 End: 08-19-2024 Tobacco smoking status NHIS Smokes tobacco daily [facility] History of tobacco use Cigarette Smoker [facility] Start: 01-06-2024 End: 01-06-2025 Cigarettes smoked current (pack per day) - Reported 0.5 [facility] History of tobacco use Passive smoker [facility] Start: 01-06-2024 End: 08-19-2024 Tobacco use and exposure Smokeless tobacco non-user [facility] Start: 01-06-2024 End: 01-06-2025 Alcoholic beverage intake Lifetime non-drinker (finding) [facility] Start: 01-06-2024 End: 01-06-2025 Tobacco use panel [facility] Start: 09-08-2023 Tobacco Comment *current smoke r, frequency unknown [facility] Start: 1955 Sex assigned at Not on file N [facility] Clinical Notes 07-07-2024 to 01-06-2025 Abdi Gr MD - 01/06/2025 5:16 PM EDFahad Gr MD - 01/06/2025 5:14 PM EDFahad Gr MD - 01/06/2025 5:14 PM EDFahad Gr MD - 01/06/2025 5:14 PM EDTPatient [...] to General Surgery documented in this encounter [facility] 08-19-2024 History of Presen t illness Narrative [...] Yes Cognitive Screening Three Word Registration: Banana, [place], Chair Clock Drawing: Normal Clock - 2 Three Word Recall: All 3 words correct - 3 Total Score (0-5 Points): 5 Advance Care Planning Do you have a living will?: No Do you have a medical power of plywood layup line core feeder?: No Objective : BP 118/60 Pulse 75 [...] August 19, 2024 documented in this encounter [facility] 07-21-2024 History of Presen t illness Narrative Images from the original note were not included. Chief Complaint: involuntary movements Subjective Carlos Bennett, 69 y.o., female Carlos is here for a neurologic consult at the request of Jo Shepard SENIOR HADOOP DEVELOPER for abnormal involuntary movements. Patient states she [...] , wrist extensors , wrist flexor , development writer strength 5/5. LUE Strength deltoid , biceps , triceps , wrist extensors , wrist flexor , development writer strength 5/5. RLE Strength illopsoas, quadriceps, tibialis [...] reflex 2+ . Lo's sign negative. Coordination: Vlakgl-am-lvsb testing and rapid alternating movements are normal [...] and return instructions documented in this encounter [facility] 07-07-2024 History of Presen t illness Narrative [...] referral to Neurology documented in this encounter [facility] 07-07-2024 Instructions Jo Shepard NP - 07/07/2024 [...] sleep per night. documented in this encounter [facility] Evaluation note Diagnosis Primary hypertension (CMS/HCC)- Primary Unspecified essential hypertension Unspecified abnormal involuntary movements Other hyperlipidemia (CMS/HCC) Rash Rash and other nonspecific skin eruption Encounter for screening mammogram for malignant neoplasm of breast documented in this encounter [facility] HealthcareEvaluation note* Diagnosis Tobacco dependency- Primary Tobacco [...] of gastrointestinal tract [facility] (n[facility]ative)* Consultation (Routine) - Authorized Specialty Diagnoses / Procedures Referred By Danielito jesus Referred To Contact Neurology Diagnoses Unspecified abnormal involuntary movements Procedures FL OFFICE/OUTPATIENT NEW HIGH MDM 60 MINUTES Jo Shepard NP [address] [place] [address] Max Encinas MD [address] [place] [address] Referral ID Status Reason Start Date Expiration Date Visits Requested Visits Authorized [id number] Authorized Specialty Services Required 07/07/2024 01/03/2025 1 1 [facility] Consultation (Routine) - Closed Specialty Diagnoses / Procedures Referred By Danielito jesus Referred To Contact Neurology Diagnoses Unspecified abnormal involuntary movements Procedures FL OFFICE/OUTPATIENT NEW HIGH MDM 60 MINUTES Jo Shepard NP [address] [place] [address] Phone: tel: fax: Max Encinas MD [address] [place] [address] Phone: tel: fax: Referral ID Status Reason Start Date Expiration Date V isits Requested Visits Authorized [id number] Closed Specialty Services Required 07/07/2024 01/03/2025 1 1 [facility] Summary Purpose Family History No Family History Records FoundNo Family History Records FoundNo Family History Records Found Advance Directives No Advanced Directives Records FoundNo Advanced Directives Records FoundNo Advanced Directives Records Found Additional Source Comments INFORMATION SOURCE (unrecogn ized section and content) DATE CREATED AUTHOR 01/10/2023 [facility] DATE CREATED AUTHOR AUTHOR'S ORGANIZ ATION 01/09/2025 [facility] EPIC DATE CREATED AUTHOR AUTHOR'S ORGANIZ ATION 01/11/2025 [facility] Care Teams (unrecognized sec tion and content) Plastics Supervisor Relationship Specialty Start Date End Date Shaikh Kent MD [address] [place] [address] PCP - Alvaro HERNANDEZ 10/06/23 Shaikh Kent MD [address] [place] [address] PCP - General Internal Medicine 01/06/24 Plastics Supervisor Relationship Specialty Start Date End Date Shaikh Kent MD [address] [place] [address] PCP - Alvaro HERNANDEZ 10/06/23 Shaikh Kent MD [address] [place] [address] PCP - General Internal Medicine 01/06/24 Plastics Supervisor Relationship Specialty Start Date End Date Shaikh Kent MD [address] [place] [address] PCP Parul John MA 10/06/23 Shaikh Kent MD [address] [place] [address] PCP - General Internal Medicine 01/06/24 Plastics Supervisor Relationship Specialty Start Date End Date Shaikh Kent MD [address] [place] [address] PCP - Alvaro HERNANDEZ 10/06/23 Shaikh Kent MD [address] [place] [address] PCP - General Internal Medicine 01/06/24 Plastics Supervisor Relationship Specialty Start Date End Date Shaikh Kent MD [address] [place] [address] PCP - Alvaro HERNANDEZ 10/06/23 Shaikh Kent MD [address] [place] [address] PCP - General Internal Medicine 01/06/24 Plastics Supervisor Relationship Specialty Start Date End Date Shaikh Kent MD [address] [place] [address] PCP - Alvaro HERNANDEZ 10/06/23 Abdi Gr MD [address] [place] [address] PCP - General Family Medicine 08/19/24 Jo Shepard NP [address] [place] [address] Nurse Practitioner Family Medicine 08/19/24 Plastics Supervisor Relationship Specialty Start Date End Date Abdi Gr MD [address] [place] [phone] PCP - General Family Medicine 08/19/24 Jo Shepard NP [address] [place] [address] Nurse Practitioner Family Medicine 08/19/24 Plastics Supervisor Relationship Specialty Start Date End Date Shaikh Kent MD [address] [place] [address] PCP Parul John MA 10/06/23 Abdi Gr MD [address] [place] [address] PCP - General Family Medicine 08/19/24 Jo Shepard NP [address] [place] [address] Nurse Practitioner Family Medicine 08/19/24 Plastics Supervisor Relationship Specialty Start Date End Date Shaikh Kent MD [address] [place] [address] PCP Parul John MA 10/06/23 Abdi Gr MD [address] [place] [address] PCP - General Family Medicine 08/19/24 Reason [...] BE BASED ON THE PRIMARY CLINICAL RECORDS. [employer] [facility]. provides no warranty or guarantee of the accuracy or completeness of information in this document.
== END 2025-01-14 12:37 | disposition home or self-care (01) ==
LOC: MAMMO 12:36
PROVIDERS: PCP Family Medicine; Visit Provider Family Medicine
DX: Z12.31 Encounter for screening mammogram for malignant neoplasm of breast (principal); Z80.3 Family history of malignant neoplasm of breast; Z80.0 Family history of malignant neoplasm of digestive organs; F17.219 Nicotine dependence, cigarettes, with unspecified nicotine-induced disorders; Z12.2 Encounter for screening for malignant neoplasm of respiratory organs; Z80.1 Family history of malignant neoplasm of trachea, bronchus and lung
CPT/HCPCS: 71271; 77063; 77067

== ENCOUNTER 2025-02-01 13:29 | Outpatient (OUT) | payer MEDICARE, SELFPAY | END 2025-02-01 13:30 | disposition home or self-care (01) | LOC: PST 13:29 | PROVIDERS: PCP Family Medicine; Visit Provider Surgery | DX: Z01.818 Encounter for other preprocedural examination (principal); G25.0 Essential tremor; J44.9 Chronic obstructive pulmonary disease, unspecified; I10 Essential (primary) hypertension ==

== ENCOUNTER 2025-02-09 07:24 | Day surgery (SDC) | payer MEDICARE, SELFPAY ==
--- NOTE | 2025-02-09 | OP_ITS ---
OPERATION DATE: 02/09/2025 PREOPERATIVE DIAGNOSIS: Change in bowel habits, rectal bleeding, family history of rectal cancer. POSTOPERATIVE DIAGNOSIS: Colon polyps x3; 3 mm hepatic flexure polyp, 1.5 cm pedunculated rectal polyp, and 7 mm pedunculated rectal polyp. PROCEDURE: Colonoscopy to cecum with cold snare polypectomy x1 and hot snare polypectomy x2. SURGEON: Ryan Aggarwal M.D. ANESTHESIA: Monitored anesthesia care. ESTIMATED BLOOD LOSS: Less than 1 mL. INDICATIONS AND CONSENT: Patient is a 69-year-old female presents for intermittent rectal bleeding, bowel changes and family history of rectal cancer. Indications, risks, benefits, alternatives of proceeding with colonoscopy were explained extensively to the patient, including the risks of bleeding, colon perforation or anesthetic complications. All of her questions were answered. Informed consent was obtained. PROCEDURE: Patient brought to the operating room, placed in the left lateral decubitus position. Monitored anesthesia care was provided. Rectal exam was performed which showed no masses or blood. The scope was inserted into the anal canal. Under direct visualization was advanced to the cecum where cecal markings were clearly identified. There was noted to be a good prep. Upon withdrawal of the scope, mucosal surfaces were carefully examined. Within the hepatic flexure, there was noted to be a 3 mm sessile polyp that was removed with cold snare with good hemostasis. There were no mass lesions or inflammatory changes. No significant diverticulosis. There was a redundant colon that was tortuous. Within the rectum, there were noted to be two adjacent pedunculated polyps. One was 1.5 cm. One was 7 mm. These were both removed with hot snare with good hemostasis. The scope was retroflexed in the anal canal. There was no significant hemorrhoidal disease. There were some external anal skin tags. The scope was then withdrawn. Patient tolerated procedure well, was sent to recovery room in good condition. Follow up colonoscopy likely in three years, but will depend on the pathology report. CC: Abdi Phillips M.D. LEO
[2025-02-09 07:30] VITALS: BP 130/89; PULSE 105; TEMP 36.3; O2SAT 96; BMI 17.8
[2025-02-09] MEDS: 0.9 % SODIUM CHLORIDE 500 ML 50 ML IV (07:49)
[2025-02-09 08:50] VITALS: BP 85/49; PULSE 83; O2SAT 96
[2025-02-09 09:05] VITALS: BP 104/57; PULSE 78; O2SAT 94
--- NOTE | 2025-02-09 09:06 | PC.NURSE ---
Up to bathroom
== END 2025-02-09 09:20 | disposition home or self-care (01) ==
PROVIDERS: PCP Family Medicine; Visit Provider Surgery
PROC: (CPT 45385; principal; 2025-02-09 08:30)
DX: Z12.11 Encounter for screening for malignant neoplasm of colon (principal); Z80.0 Family history of malignant neoplasm of digestive organs; D12.8 Benign neoplasm of rectum; D12.3 Benign neoplasm of transverse colon; K62.5 Hemorrhage of anus and rectum; R19.4 Change in bowel habit; I10 Essential (primary) hypertension; J44.9 Chronic obstructive pulmonary disease, unspecified; E78.5 Hyperlipidemia, unspecified; M81.0 Age-related osteoporosis without current pathological fracture; G25.0 Essential tremor; F17.210 Nicotine dependence, cigarettes, uncomplicated; Z98.51 Tubal ligation status
CPT/HCPCS: 45385; J2704